=== PATIENT | male | born 1935 | race Caucasian/White ===

== ENCOUNTER 2023-06-23 06:54 | Inpatient (IN) | payer OTHER, SELFPAY ==
[2023-06-23] VITALS (36 sets, daily range): BP systolic 64–144; BP diastolic 36–88; BMI 21.8; BMI 22.5
[2023-06-23 02:40] LABS: % Basophils 0.3 % (0-2); % Eosinophils 0.6 % (0-6); % Immature Granulocytes 0.5 % (0-0.5); % Lymphocytes 4.2 % (20.5-51.1); % Monocytes 6.2 % (1.7-9.3); % Neutrophils 88.2 % (42.2-75.2); Absolute Basophils 0.1 10^3/uL (0-0.2); Absolute Eosinophils 0.1 10^3/uL (0-0.7); Absolute Immature Granulocytes 0.1 10^3/uL (0-0.05); Absolute Lymphocytes 0.7 10^3/uL (1.2-3.4); Absolute Monocytes 1.1 10^3/uL (0.1-0.6); Absolute Neutrophils 15.5 10^3/uL (1.4-6.5); Hematocrit 26.7 % (39.0-52.0); Hemoglobin 8.9 g/dL (13.0-18.0); Mean Corp Hgb Conc. 33.3 g/dL (33.0-37.0); Mean Corpuscular Hgb 29.9 pg (27.0-31.0); Mean Corpuscular Volume 89.6 fL (80.0-94.0); Mean Platelet Volume 8.1 fL (7.4-10.4); Nucleated Red Blood Cells % 0 % (-); Platelet Count 386 10^3/uL (130-400); Red Blood Cell Count 2.98 10^6/uL (4.70-6.10); Red Cell Dist. Width 17.5 % (11.5-14.5); White Blood Cell Count 17.6 10^3/uL (4.8-10.8)
[2023-06-23 02:52] LABS: Lactic Acid 1.6 mmol/L (0.7-2.0); Urine Albumin Trace (Neg - Trace); Urine Bilirubin Negative (Negative); Urine Character Slightly Cloudy (Clear); Urine Color Yellow; Urine Glucose Negative (Negative); Urine Ketone Negative (Negative); Urine Leukocyte 2+ (Negative); Urine Nitrite Negative (Negative); Urine Occult Blood 4+ (Negative); Urine Urobilinogen Negative (Neg - 1+)
[2023-06-23 03:04] LABS: Urine Red Blood Cell 60-70 /HPF (0-2); Urine White Cell >100 /HPF (0-5); Urine Yeast Many (Negative)
[2023-06-23 03:05] LABS: Urine Bacteria Moderate (Negative)
[2023-06-23 03:06] LABS: COVID-19 Antigen Negative (Negative)
[2023-06-23 03:15] LABS: ALT (SGPT) 12 U/L (0-50); AST (SGOT) 22 U/L (17-59); Albumin 3.4 g/dl (3.5-5.0); Alkaline Phosphatase 116 U/L (38-126); Blood Urea Nitrogen 44 mg/dl (9-20); Calcium 9.1 mg/dl (8.4-10.2); Carbon Dioxide 23 mmol/L (22-30); Chloride 98 mmol/L (98-107); Estimated Creatinine Clearance 21 ml/min; Glucose 184 mg/dl (70-99); Potassium 5.4 mmol/L (3.5-5.1); Sodium 130 mmol/L (135-145); Total Bilirubin 0.6 mg/dl (0.2-1.3); Total Protein 7.2 g/dl (6.3-8.2)
[2023-06-23] MEDS: TYLENOL/FEVERALL 650 MG RECTAL (03:31)
[2023-06-23] MEDS: NSS 500 IV (03:32)
[2023-06-23] MEDS: NSS 1000 IV (04:57)
[2023-06-23] MEDS: ZOSYN 50 IV ×3 (05:02→20:03)
--- NOTE | 2023-06-23 05:31 | EDRN ---
Patient is sleeping, call [facility]lock in reach, waiting for plan
--- NOTE | 2023-06-23 05:32 | ED.GENMED ---
History of Present Illness
General
Chief Complaint: Breathing Problem
Source: patient, ambulance crew and prison
Exam Limitations: dementia
Time Seen by Provider: 06/23/23 02:36
Nursing documentation reviewed up to this point in time: agreed with
Travel History
Have you had any contact with someone who has COVID-19?: No
Do you have any symptoms of coronavirus? Fever > 100 degrees, chills, cough, shortness of breath, sore throat, loss of taste or smell, muscle aches, or headache?: Yes
Symptoms:: sob
History of Present Illness
History of Present Illness:
87-year-old male with a past medical history of hyperlipidemia, insulin-dependent diabetes, chronic kidney disease, chronic Murry catheter, right AKA who presents to the emergency room from [facility] for evaluation of change in
mental status. Patient is unable to meaningfully participate in history due to his dementia and confusion. History obtained from prison staff and EMS. I spoke directly to the nurse at [facility] who reports that over the past 3 to 4
days patient has been slightly lethargic but not necessarily confused. Normally oriented x 2 and able to have basic conversation and answer questions. Apparently they were concerned for urinary tract infection and a urine sample has been sent but
results not back yet. This evening they noticed that patient was much more lethargic and now confused only basically able to say his name. He was noted to be febrile, tachycardic with a borderline pulse ox around 90% on room air. He had a soft
blood pressure in the 90s. He was sent to the emergency room via EMS. EMS reports that they provided oxygen on the way to the hospital no additional medications.
Past History
Past History
ED Past Medical History: HTN, IDDM and Other (DM, BPH, HLD)
ED Past Surgical History: Cholecystectomy, Orthopedic and Other
Patient has exhibited threatening behavior?: No
Social History
Tobacco: Former smoker
Alcohol: None
Drug: None
Personal:
Living: with family
Employment: Not employed
Family History
Family History: Diabetes and Cancer
Review of Systems
Review of Systems
Unable to obtain full review of systems at this time due to: dementia
All Other Systems: Not applicable
Phy Exam
Physical Exam
Physical Exam:
General: Laying in bed opens eyes to voice, oriented x 1; appears chronically ill
Head: Normocephalic, atraumatic
Eyes: Conjunctiva normal, patient has anisocoria with left greater than right pupil
Throat: Airway intact, handling secretions
Neck: Trachea midline, supple without meningismus
Lungs: Clear to auscultation bilaterally, no wheezing, rales, rhonchi
Heart: Tachycardia with regular rhythm, no murmurs, gallops, or rubs
Abd: Soft, non distended, no apparent tenderness
: Murry catheter in place with cloudy yellow urine
Neuro: Lethargic but opens eyes to voice, oriented x 1, moving all extremities
Extremities: Patient has right AKA with a small pressure sore on the stump of the right that does not appear acutely infected; left lower extremity dry with minor wounds on the toes but none of which appear acutely infected
Scores
Heart Failure Risk
Heart Failure Risk Score: Not Applicable
Heart Score for Chest Pain Patients
STEMI patient?: Not applicable
Withdrawal Assessment of Alcohol
Withdrawal Assessment Completed?: Not applicable
Course
Orders/Labs/Results
Orders:
Orders
06/23/23 02:16
Electrocardiogram (*1) Urgent
Reason for Study: Other
Other Reason for Exam: Possible Sepsis
Cardiac Monitoring- Treatment ONCE
EKG- Treatment ONCE
IV Insert/Care/Rem.- Treatment PRN
O2 Therapy [RESP] Urgent
Titrate/Wean O2 to maintain O2 sat greater than (%): 93
Special Instructions: TO MAINTAIN CONTINUOUS O2 SATS > OR = 93%
Pulse Ox/cont/shift [RESP] Urgent
Quantity: 1
Special Instructions: CONTINUOUS
06/23/23 02:28
Complete Blood Count/With Diff Urgent
Comprehensive Metabolic Panel Urgent
Lactic Acid Q4H
Comment: ON ICE, CANCEL 2ND ORDER IF FIRST LACTIC ACID LEVEL <2
Urinalysis Reflex To Culture Urgent
Date Specimen was Collected: 06/23/23
Time Specimen was Collected: 02:16
Urine Microscopic Reflex Cult Urgent
Blood Culture Q30M
CHRISTIN Source: Blood/Venous
Specimen Description:
Comment: FROM 2 SEPARATE SITES
Blood Culture Q30M
CHRISTIN Source: Blood/Venous
Specimen Description:
Comment: FROM 2 SEPARATE SITES
Urine Culture Urgent
CHRISTIN Source: U
Specimen Description:
Date Specimen was Collected: 06/23/23
Time Specimen was Collected: 02:16
06/23/23 02:42
Portable Chest Xray [CR Chest Portable - 1 View] Urgent
Comment:
Reason For Exam: SOB
Reason Study Needs to be Portable: Unable to Transport
06/23/23 02:44
COVID-19 Antigen Urgent
Source: Nasal Swab
Influenza A+B Rapid Molecular Urgent
CHRISTIN Source: Nasal Swab
Specimen Description:
06/23/23 02:58
CT Head W/o Iv Contrast Urgent
Comment:
Reason For Exam: confusion
06/23/23 03:01
Acetaminophen [Tylenol/Feverall] 650 mg RECTAL NOW STA
06/23/23 03:02
0.9% Sodium Chloride 500 ml [Nss] 500 ml IV BOLUS
06/23/23 04:45
0.9% Sodium Chloride 1000 ml [Nss] 1,000 ml IV BOLUS
Piperacillin/Tazo 3.375 Gram [Zosyn] 3.375 gram in 50 ml IV NOW
Vancomycin [Vancocin] 1,500 mg 0.9% Sodium Chloride [Nss] 20 ml 0.9% Sodium Chloride 250 ml [Nss] 250 ml IV NOW
06/23/23 05:31
Vancomycin [Vancocin] 1,500 mg 0.9% Sodium Chloride [Nss] 20 ml 0.9% Sodium Chloride 250 ml [Nss] 250 ml IV NOW
06/23/23 Breakfast
NPO
Allow oral meds: Yes
Allow clear liquids: No
06/23/23 06:06
Admit/Transfer Patient As Directed
Co-Sign Provider:
Level of Care: Inpatient admission
Assign to:: IMU- Intermediate Care
Physician / Group: Dr. Coy hospitalist
Diagnosis: Sepsis due to complicated UTI, septic shock??, RADHA
Reason for Hospitalization: Sepsis due to complicated UTI, septic shock??, RADHA
Expected length of stay greater than two midnights?: Yes
ELOS- Estimated Length of Stay in days: 4
I certify the patient meets the requirements for IP care: Yes
06/23/23 06:15
Code Status As Directed
Resuscitation Status: Limited DNR
Limited DNR: -No intubation
06/23/23 07:12
Acetaminophen [Tylenol] 650 mg PO Q4HPRN PRN
Ipratropium/Albuterol Sulfate [Duoneb] 3 ml INH R QIDPRN PRN
Lactated Ringers [Lr] 1,000 ml IV 100 mls/hr
06/23/23 07:12
Activity As Directed
Activity Level: As Tolerated
Pneumatic Compression Sleeves As Directed
Type: Knee high
Vital Signs As Directed
Frequency: Per unit guidelines
Speech Therapy Eval & Treat Routine
DX Deep Vein Thrombosis Video Routine
06/23/23 07:30
Insulin Aspart Corrective Low [Novolog Flexpen-Low Resistance] See Protocol SC AC
06/23/23 08:00
Aspirin Chewable [Low Strength Aspirin] 81 mg PO DAILY
Clopidogrel Bisulfate [Plavix] 75 mg PO DAILY
Heparin 5,000 units SC Q12
Midodrine [ProAmatine] 5 mg PO TID@0800,1300,1800
Piperacillin/Tazo 3.375 Gram [Zosyn] 3.375 gram in 50 ml IV Q6H
Povidone-Iodine 5% Solution 1 applic TOPICAL DAILY
Tamsulosin [Flomax] 0.4 mg PO DAILY
VANCOMYCIN Pharmacy to Dose [VANCOCIN Pharmacy to Dose] 1 each Pharmacy To Prepare [Call Pharmacy To Prepare] 0 ml IV PER PROTOCOL
06/23/23 08:30
Saccharomyces Boulardii [Florastor] 250 mg PO BID@0830,1830
06/23/23 18:00
Atorvastatin [Lipitor] 20 mg PO QPM
06/23/23 22:00
insulin glargine [Lantus Solostar U-100 Insulin] 10 unit SC HS
Abnormal Lab Results
06/23/23
02:28
WBC 17.6 H 10^3/uL
(4.8-10.8)
RBC 2.98 L 10^6/uL
(4.70-6.10)
Hgb 8.9 L g/dL
(13.0-18.0)
Hct 26.7 L %
(39.0-52.0)
RDW 17.5 H %
(11.5-14.5)
Abs Immat Gran (auto) 0.1 H 10^3/uL
(0-0.05)
Absolute Neuts (auto) 15.5 H 10^3/uL
(1.4-6.5)
Absolute Lymphs (auto) 0.7 L 10^3/uL
(1.2-3.4)
Absolute Monos (auto) 1.1 H 10^3/uL
(0.1-0.6)
Neutrophils % 88.2 H %
(42.2-75.2)
Lymphocytes % 4.2 L %
(20.5-51.1)
Sodium 130 L mmol/L
(135-145)
Potassium 5.4 H mmol/L
(3.5-5.1)
BUN 44 H mg/dl
(9-20)
Creatinine 2.2 H mg/dL
(0.7-1.3)
Glucose 184 H mg/dl
(70-99)
Albumin 3.4 L g/dl
(3.5-5.0)
Ur Occult Blood Reflex 4+ A
(Negative)
Leukocyte Esterase Rfl 2+ A
(Negative)
Urine RBC 60-70 A /HPF
(0-2)
Urine WBC (Reflex) >100 A /HPF
(0-5)
Urine Bacteria (Reflex) Moderate A
(Negative)
Urine Yeast Many A
(Negative)
06/23/23 02:28
06/23/23 02:28
Vital Signs
Initial and Last Documented VS:
Initial Vital Signs
Temp Pulse Resp BP Pulse Ox
38.1 C H 112 22 96/57 92
06/23/23 02:19 06/23/23 02:19 06/23/23 02:19 06/23/23 02:19 06/23/23 02:19
Last Documented Vital Signs
Temp Pulse Resp BP Pulse Ox
38.1 C H 92 17 92/56 96
06/23/23 02:19 06/23/23 05:15 06/23/23 05:15 06/23/23 05:04 06/23/23 05:15
MDM/Problems Addressed
Differential Diagnosis Includes:
Concern would be for sepsis potentially secondary to UTI versus pneumonia versus wound infection; viral syndrome also consideration
MDM/Problems Addressed:
87-year-old male with history as documented presents from prison for evaluation of change in mental status. He presents mildly hypotensive, tachycardic, febrile, tachypneic with a borderline pulse ox 92% on room air. Physical exam as above.
Plan to place an IV send labs including CBC and CMP, lactate, blood cultures. Will check urinalysis and a chest x-ray. Will send viral swabs. Will check stat CT of the head�he does have anisocoria unclear if this is a chronic issue. Check an
EKG. Provide fluids. Reassess after the above.
Labs reviewed: CBC shows leukocytosis to 17.6. Stable anemia at 8.9. CMP shows acute kidney injury with a creatinine of 2.2 from baseline of less than 1. Marginal hyperkalemia 5.4. His lactate fortunately is less than 2. Urinalysis shows
significant pyuria and bacteria with no significant amount of squamous cells concern for possible urosepsis. Chest x-ray reviewed by me shows no clear pneumonia. CT head fortunately shows no acute pathology. Plan to cover broadly with vancomycin
and Zosyn. Continue with IV fluid resuscitation. Case discussed with hospitalist for admission for continued management.
Chronic conditions affecting care:
Dementia
*Radiology
Radiology exam reviewed: preliminary read by ED provider
*Pulse Oximetry
Patient hypoxic: no
*EKG
Interpreted by ED Provider?: Yes
Heart Rate: 109
Rate: tachycardiac
Rhythm: sinus and sinus tachycardia
[place]: left axis deviation
Interval: normal interval
QRS Pattern: normal QRS
Ischemia: non-specific ST changes
*Critical Care Note
Total Time (30-74mins, 75-104mins- exclusive of procedures): 35
comment:
Critical care statement: A total of 35 minutes of critical care time was provided for this patient. This includes management of unstable vital signs, evaluation of the patient at bedside, frequent reassessment, discussion with
consultants/hospitalist, and review of pertinent medical records. This time was separate from time utilized to perform any aforementioned documented procedures
Data Reviewed
Review of Other/Old Records Reveals: Labs, Records and Discharge Summary
Source: records, ambulance crew and prison
Patient Management
Discussion with other providers: Hospitalist (Discussed with hospitalist) and snf staff
Escalation/DeEscalation of care consider admission/obs:
Admission indicated
ED Attending Note
-
Portions of this chart may have been created with voice recognition software.� Occasional wrong word or��sound alike� substitutions may have occurred due to the inherent limitations of voice recognition software.
Discharge Plan
Departure
Patient Disposition: Admit
Date of Disposition: 06/23/23
Time of Disposition: 05:35
Admit to doctor: Zbigniew
Presentation/result/management discussed w/ accepting MD/DO: Hospitalist
Discharge Problem:
Sepsis, RADHA (acute kidney injury), Acute UTI, Encephalopathy
Interventions
Interventions:
*Risk Screen - Suicide Last Done: 06/23/23 02:19
*General Assessment Last Done: 06/23/23 02:19
*Neglect/Abuse Screening Last Done: 06/23/23 02:19
ED- Fall Risk Assessment Last Done: 06/23/23 02:50
*ED COVID-19 Vaccine History Last Done: 06/23/23 02:19
ED- Cardiac Assessment Last Done: 06/23/23 02:50
ED- Pulmonary Assessment Last Done: 06/23/23 02:50
[2023-06-23] MEDS: VANCOCIN 300 ML IV (05:38)
[2023-06-23] MEDS: VANCOCIN 300 MG IV (05:38)
--- NOTE | 2023-06-23 06:02 | HPS.HSE ---
Addendum entered and electronically signed by Efren Coy MD 06/23/23 06:47:
Correction
<del>DNR/DNI</del> <del>(okay</del> <del>to</del> <del>give</del> <del>pressor)</del>
<del>Regular</del> <del>diet</del>
<del>DVT</del> <del>prophylaxis�nonee</del>
Addendum entered and electronically signed by Efren Coy MD 06/23/23 06:35:
DX: sepsis plus or minus evolving shock due to CAUTI.
Original Note:
Family Physician
-
Family Physician: Tyrell Mcgowan DO
Chief Complaint
-
AMS
History of Present Illness
HPI
87M [place] Res HX Dementia, IDDM, PAD,chronic Murry catheter, right AKA seen at ER residential for evaluation of change in mental status. Severly limited historian due to dementia and acute confusinal status.
[facility]
Per [facility] record who reports that over the past 3 to 4 days patient has been slightly lethargic but not necessarily confused. Normally oriented x 2 and able to have basic conversation and answer questions. Apparently they were concerned for urinary
tract infection and a urine sample has been sent but results not back yet. This evening they noticed that patient was much more lethargic and now confused only basically able to say his name. Noted to be febrile, tachycardic with a borderline
pulse ox around 90% on room air. He had a soft blood pressure in the 90s.
Medical History
Past Medical History
Past Medical History: Reports Psychiatric (dementia ) and Other (HTN, IDDM and Other (DM, BPH, HLD))
Past Surgical History: Reports Cholecystectomy
Social History
Tobacco: Former Smoker
Alcohol: None
Living: Senior Living
Family History
Family History: Not pertinent
Allergies / Home Medications
Allergies reflects when Allergies were last updated in [employer].
Home Medications with original date entered in [employer]
Allergy/Medication List:
Allergies
Allergy/AdvReac Type Severity Reaction Status Date / Time
No Known Allergies Allergy Verified 06/23/23 02:42
Home Medications
acetaminophen 325 mg tablet 325 mg PO Q4HPRN PRN mild pain/fever>100.4 02/05/23
ascorbic acid (vitamin C) 500 mg tablet 500 mg PO DAILY Supplement 02/05/23
aspirin 81 mg chewable tablet 81 mg PO DAILY Blood Clot Prevention/Tx 02/05/23
atorvastatin 20 mg tablet 20 mg PO QPM High Cholesterol 02/05/23
cilostazol 50 mg tablet 50 mg PO BID@0830,1830 Blood Clot Prevention/Tx 02/05/23
clopidogrel 75 mg tablet 75 mg PO DAILY Blood Clot Prevention/Tx 02/05/23
ferrous gluconate 324 mg (38 mg iron) tablet 324 mg PO DAILY Supplement 02/05/23
folic acid 1 mg tablet 1 mg PO DAILY Supplement 02/05/23
gabapentin 300 mg capsule 300 mg PO BID@0830,1830 Neurological Condition 02/05/23
insulin glargine 100 unit/mL (3 mL) subcutaneous pen (Lantus Solostar U-100 Insulin) 12 unit SC HS Diabetes 02/05/23
melatonin 3 mg tablet 3 mg PO QPM Sleep 02/05/23
metformin 500 mg tablet 500 mg PO DAILY Diabetes 02/05/23
metoprolol succinate 25 mg tablet,extended release 24 hr 12.5 mg PO DAILY Blood Pressure 02/05/23
tamsulosin 0.4 mg capsule 0.4 mg PO DAILY Lung/Breathing Issues 02/05/23
Povidone-Iodine 5% Solution 1 applic topical DAILY Skin Issues 04/04/23
Saccharomyces boulardii 250 mg capsule 250 mg PO BID@08,1829 probiotic 04/04/23
bisacodyl 10 mg rectal suppository (Dulcolax (bisacodyl)) 10 mg NE DAILYPRN PRN if lactulose is ineffective 04/04/23
gabapentin 100 mg capsule 100 mg PO BID@829,1829 Pain 04/04/23
gabapentin 300 mg capsule 600 mg PO HS Pain 04/04/23
ipratropium 0.5 mg-albuterol 3 mg (2.5 mg base)/3 mL nebulization soln 3 ml inhalation R QIDPRN PRN sob/wheezing 04/04/23
lactulose 10 gram/15 mL oral solution 20 g PO HSPRN PRN constipation 04/04/23
sodium phosphates 19 gram-7 gram/118 mL enema (Fleet Enema) 118 ml NE DAILYPRN PRN if no bm 8hrs after suppository 04/04/23
<del>sulfamethoxazole</del> <del>800</del> <del>mg-trimethoprim</del> <del>160</del> <del>mg</del> <del>tablet</del> <del>(Bactrim</del> <del>DS)</del> <del>1</del> <del>tab</del> <del>PO</del> <del>BID@0830,1830</del> <del>Infection</del>
<del>04/04/23</del>
docusate sodium 100 mg capsule 100 mg PO BID Constipation #0 caps 04/10/23
insulin lispro 100 unit/mL subcutaneous pen (Humalog KwikPen (U-100) Insulin) 3 unit (0.03 mL) SC TID@0800,1200,1630 Diabetes #0 mL 04/10/23
midodrine 5 mg tablet 5 mg PO TID@0800,1300,1800 Blood pressure #0 tabs 04/10/23
oxycodone 15 mg tablet,crush resistant,extended release 12 hr (OxyContin) 15 mg PO Q12 Pain #4 tabs 04/10/23
oxycodone 5 mg tablet 10 mg PO Q6HPRN PRN moderate severe pain #8 tabs 04/10/23
sennosides 8.6 mg tablet (Senna Lax) 17.2 mg PO BID Constipation #0 tabs 04/10/23
Review of Systems
-
Constitutional: Reports No Symptoms
EENT: Reports No Symptoms
Respiratory: Reports No Symptoms
Cardiac: Reports No Symptoms
Abdomen/GI: Reports No Symptoms
: Reports No Symptoms
Musculoskeletal: Reports No Symptoms
Skin: Reports No Symptoms
Neurological: Reports See HPI and Other (AMS)
Endocrine: Reports No Symptoms
Hematologic/Lymphatic: Reports No Symptoms
Psych: Reports No Symptoms
Physical Exam
Vital Signs
Vital Signs
Temp Pulse Resp BP Pulse Ox
100.6 F H 92 17 92/56 96
06/23/23 02:19 06/23/23 05:15 06/23/23 05:15 06/23/23 05:04 06/23/23 05:15
Physical Exam
General: Other (see below )
Laboratory Results
-
06/23/23 02:28
06/23/23 02:28
Laboratory Results
Lactic Acid Cancelled 06/23/23 06:30
Total Bilirubin 0.6 mg/dl (0.2-1.3) 06/23/23 02:28
AST 22 U/L (17-59) 06/23/23 02:28
ALT 12 U/L (0-50) 06/23/23 02:28
Alkaline Phosphatase 116 U/L (38-126) 06/23/23 02:28
Data Reviewed
-
Lab Data: Labs Reviewed by me
Old Records: Reviewed
Impression/Plan
-
Reviewed VS: T 100.6 BP 90/55 HR 90
PE
Gen: lethargic
HEENT: anicteric
Neck: supple
Lungs: symmetric AE
Cor: RRR S1 S2
Abdomen: soft NT NG NRT
[employer]ER: confused
MS: no edema
Psych: deferred due to AMS
Data
WCC 17s
Hgb 8.9 - baseline mid 8s - mid 9s
Na 130
K 5.4
BUN 44
Cr 2.2 - baseline 1.0
BG 185
Significantly abnormal UA suggestive of UTI
UCx sent
BCx sent
CXR: no overt PNA by my view
HCT: No acute process
EKG
SINUS TACHYCARDIA
LEFT AXIS DEVIATION
ABNORMAL ECG
WHEN COMPARED WITH ECG OF 05-FEB-2023 20:20,
PREMATURE VENTRICULAR COMPLEXES ARE NO LONGER PRESENT
PREMATURE SUPRAVENTRICULAR COMPLEXES ARE NO LONGER PRESENT
Pror admission 04/04/23 - 04/10/23
DISCHARGE DIAGNOSIS:
Sepsis secondary to wounds on the lower extremities and right above knee amputation stump.
IDDM with Diabetic neuropathy.
Severe PAD
Prostatic hypertrophy.
Hypertension.
Chronic anemia.
ASSESSMENT & PLAN
Sepsis due to complicated UTI
Hypotension - evolving septic shock plkus HX Midodrine depedent hypotesion
Asso. RADHA due to sepsis
Mild hyperkalemia due to RADHA
Asso. hypoactive TME
HX POS MRSA wound infection
HX C diff
- Empiric NPO for aspiration precaution
- Nursing to screen for PO
- s/p 1.5l septic NS fluid bolus
- IV LR in place of NS
- agree with IV Vancomycin and Zosyn
- add Florastor BID
- Held [employer] gabapentin and [employer] Oxycodone due to lethargy
- f/u Bcx, UCx
- f/u Cr and K
- f/u BP
Severe peripheral arterial disease of left lower extremity
- on aspirin, Plavix, statin, cilostazol
Chronic anemia
-Hold iron supplement
Essential hypertension
-Hold metoprolol
IDDM
Diabetic neuropathy
- de escalade Lantus to 10 HS
- held Humalog
- add low ISS
BPH
-Continue tamsulosin
Constipation HX
DNR/DNI (okay to give pressor)
Regular diet
DVT prophylaxis�none
DVT Px: SQH q12
Code: DNI per prior record
IMU
[2023-06-23] MEDS: LR 1000 IV ×4 (08:47→21:18)
[2023-06-23] MEDS: PLAVIX PO (08:49)
[2023-06-23] MEDS: FLORASTOR PO (08:49)
[2023-06-23] MEDS: ProAmatine PO ×2 (08:49→20:17)
[2023-06-23] MEDS: LOW STRENGTH ASPIRIN PO (08:49)
[2023-06-23] MEDS: FLOMAX PO (08:49)
[2023-06-23] MEDS: HEPARIN 5000 UNITS SC ×2 (08:52→22:40)
--- NOTE | 2023-06-23 09:43 | EDRN ---
physician aware that wound care order needs to be adjusted per pharmacy
--- NOTE | 2023-06-23 11:04 | EDRN ---
Pharmacy trying to obtain the wound dressing order for me to utilize
[2023-06-23 12:50] LABS: Glucose - Point of Care 213 mg/dl (70-99)
[2023-06-23] MEDS: NOVOLOG FLEXPEN-LOW RESISTANCE 2 UNITS SC (12:51)
[2023-06-23] MEDS: ProAmatine 5 MG PO (13:00)
--- NOTE | 2023-06-23 13:46 | PHA.VAN.IN ---
Assessment
- Assessment
Renal Function: Appears elevated from baseline (06/08/22 Scr 0.7)
Maximum Temperature: 100.6 06/23/23 at 02:19
Minimum Temperature: 97.5 06/23/23 at 07:25
Concomitant Antimicrobials: Piperacillin-tazobactam
Historical Micro: History of MRSA infection (Left leg wound 04/04/23)
- Previous Dosing Experience
Previous Regimen: see below
Patient's SCR is: Elevated compared to previous dosing experience (0.7)
Patient's weight is: Elevated compared to previous dosing experience (61.1 now 65kg)
Pharmacist note from prior Regimen 04/10/2023
Vancomycin Assessment / Plan
- Assessment
Renal Function: Stable
Vancomycin since discontinued but provided the following patient-specific PK:
- Assessment - Therapeutic Drug Monitoring
Extrapolated Cmax (mcg/mL): 32.5
Peak level was drawn: Appropriately (drawn ~1.2H after end of previous infusion)
Extrapolated Cmin (mcg/mL): 15.7
Trough Drawn: Appropriately
Levels were drawn: At steady state (levels drawn around 4th maintenance dose)
Calculated AUC (mcg*h/mL): 555
Calculated ke: 0.64469
Calculated half life (H): 21.5
Calculated Vd (L): 70 (1.1 L/kg)
Calculated Vanc CL (ml/min): 37.5
Levels were not drawn in same dosing interval so calculations extrapolated as if they were
Vancomycin since discontinued.
For future dosing, if weight and renal function stable, may consider Vanc 1250mg Q24H or lowest dosing to provide therapeutic AUC and further decrease nephrotoxicity risk would be Vanc 1000mg Q24H (AUC 451, Cmax 26.6, Trough 12.7)
Plan
- Plan
Initial / Loading Dose: Vancomycin 1500mg x 1 given in ED at 05:38 am
Maintenance Regimen: Dose by level
Monitoring: Random vancomycin level ordered for 06/24/23 at 06:00
Pharmacokinetics Vancomycin I
- -
Patient Age: 87
Patient Sex: Male
Vancomycin Day #: 1
Indication: Genito-Urinary Tract
Requesting Provider: Oskar MENDOZA
Pertinent Antimicrobial Allergies:
No antibiotic allergies
Height / Weight:
Height 5 ft 8 in
Actual Weight 65 kg
IBW in k.4
Pertinent Past Medical History: DM, R AKA, chronic soria, Non-pressure chronic ulcer of LE
- Vital Signs / Lab Results
Temp Pulse Resp BP Pulse Ox
97.5 F 88 19 91/55 92
06/23/23 07:25 06/23/23 13:00 06/23/23 12:00 06/23/23 13:00 06/23/23 12:00
Lab Results - Hematology
06/23/23
02:28
WBC 17.6 H
Lab Results - Chemistry
06/23/23
02:28
BUN 44 H
Creatinine 2.2 H
Estimated Creat Clear 21
Albumin 3.4 L
06/23/23 06/23/23 06/23/23
02:28 03:00 06:30
Lactic Acid 1.6 Cancelled Cancelled
Lab Results - Urine
06/23/23
02:28
Urine Nitrite (Reflex) Negative
Leukocyte Esterase Rfl 2+ A
Urine WBC (Reflex) >100 A
Ur Squamous Epith Cells 3-5
Urine Bacteria (Reflex) Moderate A
Microbiology Results
06/23/23 02:44 Influenza Types A & B (GLORIA) - Final
Nasal Swab Negative for Influenza A & B, NAAT
Negative results must be combined with clinical observations
and patient history.
Nucleic Acid Amplification test (NAAT)performed on the
[employer] platform.
--- NOTE | 2023-06-23 13:51 | PTOTSP ---
SPEECH THERAPY SWALLOW EVALUATION:
Clinical signs of oropharyngeal dysphagia, likely chronic related to dementia (given daughter's report of prior history) and acutely exacerbated by current lethargy/confusion secondary to sepsis and UTI. Patient remains at risk for aspiration and
related complications given tenuous respiratory status and confusion/lethargy. Recommend temporary NPO except for necessary medications crushed in puree and small single sips of water with RN assist when alert and upright, following aggressive oral
care. Speech therapy to follow, re-assess patient in 24 hours, provide continued education regarding aspiration risks and precautions and provide continued diagnostic treatment as appropriate.
RECOMMEND:
1) temporary NPO
2) necessary medications crushed in puree
3) small single sips of water with NO STRAW with RN assist when alert and upright, following aggressive oral care
4) Speech therapy to follow, re-assess patient in 24 hours, provide continued education regarding aspiration risks and precautions and provide continued diagnostic treatment as appropriate
--- NOTE | 2023-06-23 14:33 | CON.ID ---
Consultation
-
Date/Time Consultation Requested: 06/23/23 9:17
Date/Time Consultation Performed: 06/23/23 14:38
Requesting Provider: Dr Arrington
Performing Provider: Dr Copeland
Reason for Consultation: severe sepsis
Chief Complaint / Past History
Chief Complaint
AMS
History of Present Illness
Ms Wei is an 87 year old male with history of dementia, chronic soria catheter who presented here today for change in mental status - history limited by the condition of the patient, history obtained by chart review. Has been lethargic x3-4
days, there was progression of confusion and she developed a fever, tachycardia and hypoxemia/hypotension and she was referred to the ER. 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
Since arrival here she has been febrile to 100.6, BP stable, wbc 17, hgb 8.9, plt 386, L shift, cr basline 1.0 now 2.2, UA with gross pyuria from a soria, moderate bacteria, many yeast, covid negative, CT head w/o contrast: atrophy, CXR: nonspecific
- PA and lateral recommended - possible atelectasis vs pneumonia, blood cultures x2 in progress note urine culture from 06/21 listed as clean catch 100K c albicans, a second urine culture sent today - in progress, QTc 430 currently on vancomycin and
zosyn, flu and covid pcrs negative, ID is consulted for assistance with management.
Past History
Additional Past Medical History:
(dementia ) and Other (HTN, IDDM and Other (DM, BPH, HLD))
Additional Past Surgical History:
cholecystectomy and right AKA
Allergy History:
No Known Allergies Allergy (Verified 06/23/23 02:42)
Medications Reviewed: Yes
Social History
Tobacco: Former Smoker
Alcohol: None
Drug: None
Family History
Family History: Not Pertinent
Review of Systems
Review of Systems
General: Fever
unable to obtain full ROS due to AMS
Vital Signs
Temp Pulse Resp BP Pulse Ox
97.5 F 88 19 91/55 92
06/23/23 07:25 06/23/23 13:00 06/23/23 12:00 06/23/23 13:00 06/23/23 12:00
Physical Exam
Physical Exam
Constitutional: No Acute Distress and Chronically Ill
Cardiovascular: Regular Rate and S1/S2; Negative Murmur or Rub
Pulmonary: Clear and Symmetric; Negative Wheezes, Rales or Rhonchi
Gastrointestinal: Soft, Non Tender, Non Distended and Normal Bowel Sounds
Genito-Urinary: Negative Suprapubic Tenderness
Skin: Warm and Dry; Negative Rash or Jaundice
Wound: Other (multipodus boot on the foot)
Neurological: Negative Awake
Lab / Diagnostic Study Results
06/23/23 02:28
06/23/23 02:28
Abs Immat Gran (auto) 0.1 10^3/uL (0-0.05) H 06/23/23 02:28
Absolute Neuts (auto) 15.5 10^3/uL (1.4-6.5) H 06/23/23 02:28
Absolute Lymphs (auto) 0.7 10^3/uL (1.2-3.4) L 06/23/23 02:28
Absolute Monos (auto) 1.1 10^3/uL (0.1-0.6) H 06/23/23 02:28
Absolute Basos (auto) 0.1 10^3/uL (0-0.2) 06/23/23 02:28
Immature Gran % 0.5 % (0-0.5) 06/23/23 02:28
Neutrophils % 88.2 % (42.2-75.2) H 06/23/23 02:28
Lymphocytes % 4.2 % (20.5-51.1) L 06/23/23 02:28
Monocytes % 6.2 % (1.7-9.3) 06/23/23 02:28
Eosinophils % 0.6 % (0-6) 06/23/23 02:28
Basophils % 0.3 % (0-2) 06/23/23 02:28
Lactic Acid Cancelled 06/23/23 06:30
Ur Squamous Epith Cells 3-5 /LPF (Few) 06/23/23 02:28
Microbiology Results
Micro:
06/23/23 02:44 Influenza Types A & B (GLORIA) - Final
Nasal Swab Negative for Influenza A & B, NAAT
Negative results must be combined with clinical observations
and patient history.
Nucleic Acid Amplification test (NAAT)performed on the
[employer] platform.
06/23/23 02:28 Urine Culture - Pending
Urine
06/23/23 02:28 Blood Culture - Pending
Blood/Venous
06/23/23 02:28 Blood Culture - Pending
Blood/Venous
Assessment / Plan
AMS
Possible Candidal UTI vs Colonization
Leukocytosis
Sepsis
- blood cultures x2 in progress
- a repeat urine culture is in progress, note urine cx from 06/21 with 100K C albicans
- QTc is acceptable
- start fluconazole 400 mg loading dose, 200 mg moving forward
- continue zosyn for now, stop vancomycin
- CT a/p without contrast
- soria needs to be removed and replaced during this admission
Hyperkalemia
- management per IM service
[2023-06-23] MEDS: DIFLUCAN 400 MG 200 IV (16:06)
[2023-06-23 19:16] LABS: Glucose - Point of Care 119 mg/dl (70-99)
[2023-06-23] MEDS: NOVOLOG FLEXPEN-LOW RESISTANCE SC (19:22)
--- NOTE | 2023-06-23 19:55 | PHANOTE ---
06/23/2023, [email or web address], called Josy Miller several times to fax over pt.'s medication list and was unsuccessful.
[2023-06-23] MEDS: FLORASTOR 250 MG PO (20:12)
[2023-06-23] MEDS: LIPITOR PO (20:16)
--- NOTE | 2023-06-23 20:25 | EDRN ---
Patient's urine output is a fruit punch red when previously was an ice tea color. Some clots also noted. Unable to give all of night time oral medication d/t patient having a wet cough after giving one medication with apple sauce. Loyda Morgan made
aware.
--- NOTE | 2023-06-23 22:14 | PTCARENOTE ---
Rec'd pt from ED RN Selena. Pt AAOx2, able to identify hospital but thought he was in [place]. Pt oriented to surroundings and safety measures. Pt is confused/forgetful with hx dementia, presents with garbled speech and grits teeth while
talking at times, but denies pain/SOB. Does exhibit harsh wet non-productive cough. Pt yells out into hallway for nurse at times. Incredibly limited/untrustworthy historian d/t hx. Denies dentures, but is noted to have poor oral hygeine with several
lower teeth chipped. Upper teeth appear to be much more intact, unsure if possible denture present. GRAVITY PROSPECTOR noted that urine had been doreen-tea colored with a new change of punch colored urine. Upon assessment of Murry catheter system, catheter tubing
was not secured correctly within the stat lock device causing tension on the catheter. Pt's genitalia and brief were both bloody. Upon cleaning pt's genitalia, this RN assessed abnormal genitalia with severely flayed penis, likely d/t chronic Murry.
This RN noted small amount of active bleeding at catheter insertion site, likely d/t catheter tubing not secure within stat lock, which has been remedied. Call whitlock placed within reach and bed alarm placed for safety.
[2023-06-23] MEDS: LANTUS 0.100000000000000006 UNITS SC (22:41)
[2023-06-23 22:51] LABS: Glucose - Point of Care 149 mg/dl (70-99)
[2023-06-24] VITALS (12 sets, daily range): BP systolic 96–134; BP diastolic 57–79; BMI 22.6
[2023-06-24 00:09] LABS: Glucose - Point of Care 144 mg/dl (70-99)
[2023-06-24] MEDS: NOVOLOG FLEXPEN-LOW RESISTANCE SC ×4 (01:09→17:40)
[2023-06-24] MEDS: ZOSYN 50 IV ×2 (01:16→05:45)
[2023-06-24] MEDS: LR 1000 IV ×4 (03:00→20:46)
[2023-06-24] MEDS: TYLENOL PO (03:21)
[2023-06-24] MEDS: TYLENOL/FEVERALL 650 MG RECTAL (04:19)
[2023-06-24 06:12] LABS: Hematocrit 25.1 % (39.0-52.0); Hemoglobin 8.4 g/dL (13.0-18.0); Mean Corp Hgb Conc. 33.5 g/dL (33.0-37.0); Mean Corpuscular Hgb 30.1 pg (27.0-31.0); Mean Platelet Volume 8.5 fL (7.4-10.4); Platelet Count 361 10^3/uL (130-400); Red Blood Cell Count 2.79 10^6/uL (4.70-6.10); Red Cell Dist. Width 17.3 % (11.5-14.5); White Blood Cell Count 10.5 10^3/uL (4.8-10.8)
[2023-06-24 06:29] LABS: Blood Urea Nitrogen 25 mg/dl (9-20); Calcium 8.2 mg/dl (8.4-10.2); Carbon Dioxide 24 mmol/L (22-30); Chloride 104 mmol/L (98-107); Estimated Creatinine Clearance 42 ml/min; Glucose 110 mg/dl (70-99); Potassium 4.3 mmol/L (3.5-5.1); Sodium 131 mmol/L (135-145); eGFR > 60.00
[2023-06-24 06:32] LABS: Glucose - Point of Care 128 mg/dl (70-99)
[2023-06-24] MEDS: PLAVIX PO (07:14)
[2023-06-24] MEDS: ProAmatine PO (07:14)
[2023-06-24] MEDS: FLOMAX PO (07:14)
[2023-06-24] MEDS: LOW STRENGTH ASPIRIN PO (07:14)
[2023-06-24] MEDS: FLORASTOR PO (07:15)
[2023-06-24] MEDS: HEPARIN 5000 UNITS SC ×2 (08:28→20:12)
--- NOTE | 2023-06-24 09:15 | PTOTSP ---
Speech Language Pathology
Pt seen for dysphagia tx. Awake upon arrival. Oriented to name, , and month. P.O. trials of ice chips, thin liquids, nectar-thick liquids, puree, and regular solids provided. Slightly prolonged mastication noted with regular solids, but this
was functional given additional time. Immediate cough with thin liquids. Slight wet vocal quality post consecutive sips of nectar-thick liquids.
Recommend:
(1) Regular solids/IDDSI Level 2 Liquids (mildly-thick/nectar-thick liquids)
(2) Aspiration precautions: sit upright, slow rate, single cup or straw sips
(3) Meds crushed in puree
(4) VSE to further evaluate pharyngeal phase of swallow function
(5) Allow ice chips between meals post oral care given supervision per Aspiration Risk Hydration Protocol (ARHP)
(6) UX DESIGNER to continue to follow
--- NOTE | 2023-06-24 10:02 | W.PN.ID1 ---
Date of Service
Date of Service: June 24, 2023
Today's Communication
- soria to be removed and replaced vs suprapubic cath; removal as peristent yeast in culture - urology consulted
- sterocolitis and impaction - management per IM service - would suggest addressing this
Assessment / Plan
AMS - improved
Probable Candidal UTI
Leukocytosis
RADHA resolved
Sepsis
- blood cultures x2 in progress
- a repeat urine culture is in progress, note urine cx from 06/21 with 100K C albicans
- QTc is acceptable
- continue fluconazole 200 mg moving forward
- start unasyn stop zosyn
- CT - thickened bladder wall, probable impaction/possible colitis, possible aspiration
- soria to be removed and replaced vs suprapubic cath; removal as peristent yeast in culture - urology consulted
- sterocolitis and impaction - management per IM service - would suggest addressing this
Chief Complaint
-: Clinical Sepsis and UTI
Subjective / Review of Systems
tmax 101.4
bp stable
resolved leukocytosis
cr stable 1.1
urine culture again with c albicans 100K
denies coughing
cant remember the last time he pooped - no abdominal tenderness
Vital Signs / Physical Exam
Vital Signs
Vital Signs
Temp Pulse Resp BP Pulse Ox
99.3 F 114 29 102/59 98
06/24/23 07:05 06/24/23 08:00 06/24/23 08:00 06/24/23 08:00 06/24/23 10:00
Physical Exam
Constitutional: No Acute Distress and Chronically Ill
Cardiovascular: Regular Rate and S1/S2; Negative Murmur or Rub
Pulmonary: Clear and Symmetric; Negative Wheezes or Rales
Gastrointestinal: Soft, Non Tender, Non Distended and Normal Bowel Sounds
Genito-Urinary: Negative Suprapubic Tenderness
Skin: Warm and Dry; Negative Rash or Jaundice
Objective Data
Lab Data
Lab Results
06/24/23 05:54
06/24/23 05:54
Estimated Creat Clear 42 ml/min 06/24/23 05:54
Lactic Acid Cancelled 06/23/23 06:30
Total Bilirubin 0.6 mg/dl (0.2-1.3) 06/23/23 02:28
AST 22 U/L (17-59) 06/23/23 02:28
ALT 12 U/L (0-50) 06/23/23 02:28
Alkaline Phosphatase 116 U/L (38-126) 06/23/23 02:28
Most recent labs reviewed.
Micro Results:
06/23/23 02:28 Urine Culture - Final
Urine Grecia albicans
06/23/23 02:28 Blood Culture - Preliminary
Blood/Venous No Growth in 24 hours- Final report to follow
06/23/23 02:28 Blood Culture - Preliminary
Blood/Venous No Growth in 24 hours- Final report to follow
06/23/23 02:44 Influenza Types A & B (GLORIA) - Final
Nasal Swab Negative for Influenza A & B, NAAT
Negative results must be combined with clinical observations
and patient history.
Nucleic Acid Amplification test (NAAT)performed on the
[employer] platform.
Care Review
Plan reviewed with: Physician (Dr Arrington - bowel regimen, uro consult)
--- NOTE | 2023-06-24 10:05 | CM ---
Patient from [facility] with Hx Dementia, IDDM, chronic Murry catheter, right AKA with Dx Sepsis due to UTI, hypotension - evolving septic shock, RADHA, TME. O2 5L. NPO/IVF. Receiving IV Zosyn, IV Diflucan. Per nurse assessment;
confused, forgetful.
Spoke with Samia, [facility]; the patient resides at [facility] in LTC and is on a private pay bed hold. The phone for report is [phone], fax [phone]. Samia would like the patient to return skilled for PT/OT - uncertain
if patient would benefit from transfer training.
Spoke with Pascual, nurse [facility]; the patient was mostly forgetful at baseline with intermittent confusion.
The patient is assisted with ADLs.
He has no prosthetic leg and is non-ambulatory.
A mechanical lift is used for transfers out of bed. He is able to self propel his w/c.
The patient is able to feed himself.
Pharmacy -[facility].
CM continuing to follow for d/c needs.
Plan request PT/OT Evals.
Plan contact patient's daughter Paula prior to return to SNF.
Plan return to [facility] when medically ready.
--- NOTE | 2023-06-24 10:37 | WOUNDNOTE ---
L GREAT TOE TIP
--- NOTE | 2023-06-24 10:37 | WOUNDNOTE ---
LLE (ANTERIOR UPPER)
--- NOTE | 2023-06-24 10:39 | WOUNDNOTE ---
PENIS MEATAL TEAR
--- NOTE | 2023-06-24 10:42 | WOUNDNOTE ---
WOC RN note: Patient admitted with sepsis secondary to complicated UTI, septic shock. Patient resides at SNF.
See H&P for complete history.
PMH: dementia, IDDM, severe PAD, Murry (penile meatal tear)
Wound Location and type/assessment: Patient admitted with:
Appetite:
Pressure redistribution devices in place:
Plan:
Will confirm orders with hospitalist and update nurse.
Updated care plan and will follow as needed.
Note to case management of equipment requested for discharge:
Recommend follow up at wound care center upon discharge.
--- NOTE | 2023-06-24 10:46 | WOUNDNOTE ---
[facility] RN note: Patient admitted with sepsis secondary to complicated UTI, septic shock. Patient resides at SNF. Patient stated he has an air mattress at SNF.
See H&P for complete history.
PMH: dementia, IDDM, severe PAD, Murry (penile meatal tear)
Wound Location and type/assessment: Patient admitted with: Dry gangrene ulcer L heel, L medial, anterior and lateral foot, L great toe tip. 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 Discolored scarred sacral/buttocks from previous pressure injury. L anterior
upper calf with scattered purple ecchymotic areas.
Appetite: currently NPO.
Pressure redistribution devices in place: [employer] air bed. Patient assists with turning. He can lift his LLE off bed. Soft heel relief boot.
Plan: Betadine and ABD pad applied to L heel/foot wounds. Swabbed L great toe tip with Betadine. Patient turned to L semi side lying position with help from PCT Yonatan. Patient's soft heel relief boot reapplied LLE. Air chair cushion given.
Will confirm orders with hospitalist and discussed with ROCIO Braga.
Care plan to be updated and will follow as needed.
--- NOTE | 2023-06-24 10:58 | W.PN.HOSP.TC ---
Today's Communication/Plan
-
see bold
Assessment / Plan
Assessment / Plan
Gen: NAD, AAOx2-3.
Eyes: EOMI, PERRLA, no scleral icterus.
Neck: supple.
CV: remains RRR, +S1/S2, no m/r/g.
Resp: remains CTAB, no rales, wheezes, or rhonchi.
Abd: remains +BS, soft, NT, ND
Skin: No rashes.
Neuro: CN 2-12 intact, non-focal.
Psych: Normal mood and affect.
06/23/23 02:28 Urine Urine Culture - Final
Grecia albicans
06/23/23 02:28 Blood/Venous Blood Culture - Preliminary
No Growth in 24 hours- Final report to follow
06/23/23 02:28 Blood/Venous Blood Culture - Preliminary
No Growth in 24 hours- Final report to follow
06/23/23 02:44 Nasal Swab Influenza Types A & B (GLORIA) - Final
Negative for Influenza A & B, NAAT
Negative results must be combined with clinical observations
and patient history.
Nucleic Acid Amplification test (NAAT)performed on the
[employer] platform.
CT A/P:
1. � Severely limited examination without IV and oral contrast. Motion artifact limits the exam. Artifact from the patient's arms limits evaluation for subtle abnormality.
2. � Solid organs unchanged from previous CT 4.5 months ago.
3. � Large amount of stool throughout the colon consistent with constipation. Mild wall thickening of the distal rectosigmoid region, with an area of adjacent stranding and inflammation, differential includes diverticulosis with diverticulitis
versus stercoral colitis. There is fecal impaction in the rectum.
4. � Limited distention of the urinary bladder, there is a Murry catheter in place and the wall is diffusely thickened.
5. � No significant free fluid or free air. No fluid collection to suggest an abscess.
6. � Moderate hiatal hernia.
7. � Increased moderate bibasilar consolidation and small pleural effusions. Does the patient aspirate?
8. 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
9. � Atherosclerotic vascular disease. Not significantly changed from prior CT. Limited exam without IV contrast.
CT brain: There are no acute intracranial abnormalities. 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 There is moderate diffuse cortical atrophy with extensive nonspecific white matter changes.
CXR:
1. Mild central interstitial prominence, which may be related to low inspiratory volumes or mild pulmonary edema.
2. Haziness of the left hemidiaphragm, which may represent left lower lobe subsegmental atelectasis, pneumonia, and/or small left pleural effusion. Consider PA and lateral views when possible.
3. Mild cardiomegaly.
Severe sepsis due to probable candidal UTI:
-ID following
-Leukocytosis resolved
-BCxs NG, UCx grecia
-cont Fluconazole
-c/s Uro for SPT
-cont IVFs (decrease to 125cc/hr)
-cont Midodrine
Rectosigmoid stercoral colitis versus diverticulitis with fecal impaction:
-Enema x 1 now
-start Miralax/senna
-cont Unasyn
Other problems:
DM2 with Diabetic neuropathy: cont Lantus/SSI/accuchecks
Severe PAD LLE: cont ASA/Plavix/statin/cilostazol
BPH:Continue tamsulosin
Chronic anemia: Holding iron supplement
Essential hypertension: Holding metoprolol
Limited DNR
Anticipated Discharge: > 48 hours
Subjective/Interval History
-
Date of Service: June 24, 2023
Pt denies CP/SOB.
Objective Data
-
Labs:
Laboratory Results
06/24/23
05:54
WBC 10.5
Hgb 8.4 L
Hct 25.1 L
Plt Count 361
Sodium 131 L
Potassium 4.3
Chloride 104
Carbon Dioxide 24
BUN 25 H
Creatinine 1.1
Glucose 110 H
Calcium 8.2 L
Vital Signs:
Vital Signs
Temp Pulse Resp BP Pulse Ox
99.3 F 114 29 102/59 98
06/24/23 07:05 06/24/23 08:00 06/24/23 08:00 06/24/23 08:00 06/24/23 10:00
I&O
06/23/23 06/24/23 06/25/23
06:59 06:59 06:59
Output Total 4550 / 4550
Balance -4550 / -4550
[2023-06-24 11:59] LABS: Glucose - Point of Care 135 mg/dl (70-99)
[2023-06-24] MEDS: UNASYN IV ×3 (11:59→23:37)
[2023-06-24] MEDS: ProAmatine 5 MG PO ×2 (13:17→17:26)
[2023-06-24] MEDS: SENOKOT 17.1999999999999993 MG PO ×2 (13:17→20:11)
[2023-06-24] MEDS: MIRALAX 17 GRAMS PO ×2 (13:17→20:11)
--- NOTE | 2023-06-24 17:05 | PTCARENOTE ---
assessment as charted. milk and molasses enema ordered but not given as pt was incontinent of very large bowel movement. miralax and senna started per order.
[2023-06-24] MEDS: DIFLUCAN 200 MG 100 IV (17:24)
[2023-06-24] MEDS: FLORASTOR 250 MG PO (17:26)
[2023-06-24] MEDS: LIPITOR 20 MG PO (17:26)
[2023-06-24 17:50] LABS: Glucose - Point of Care 149 mg/dl (70-99)
[2023-06-24] MEDS: DUONEB 3 ML INH (18:22)
[2023-06-24] MEDS: MUCINEX 600 MG PO (20:46)
[2023-06-24] MEDS: LANTUS 0.100000000000000006 UNITS SC (21:08)
[2023-06-24 21:20] LABS: Glucose - Point of Care 183 mg/dl (70-99)
--- NOTE | 2023-06-24 22:00 | PTCARENOTE ---
Assume care from AM RN. daughter at bedside. AAOx1, anxious at times. SEMINOLE. Lt side weakness. Daughter was concern about this father respiration and saturation. pt O2 was increased to 6L. Pt lung sounds are diminished, coarse at the bases with
expiratory wheezing. Shallow tachypneic breathing. Pt high risk for aspiration. Pt was manually oral suctioned and mcclendon thick mucus output. Occasional wet productive cough. Pt has been ST in the monitor. SLAB MILLER OPERATOR notify about respiratory changes and Xray
order for AM. Will cont with tx plan.
[2023-06-24] MEDS: MORPHINE SULFATE 1 MG IV (23:52)
[2023-06-25] VITALS (15 sets, daily range): BP systolic 101–137; BP diastolic 58–85; BMI 22.5
[2023-06-25] MEDS: LR 1000 IV (05:08)
[2023-06-25] MEDS: UNASYN IV (05:08)
[2023-06-25] MEDS: NOVOLOG FLEXPEN-LOW RESISTANCE SC ×2 (07:55→17:23)
[2023-06-25] MEDS: HEPARIN 5000 UNITS SC ×2 (07:56→20:35)
[2023-06-25] MEDS: PLAVIX 75 MG PO (07:56)
[2023-06-25] MEDS: SENOKOT 17.1999999999999993 MG PO ×2 (07:56→20:35)
[2023-06-25] MEDS: FLORASTOR 250 MG PO ×2 (07:56→16:49)
[2023-06-25] MEDS: FLOMAX 0.400000000000000022 MG PO (07:56)
[2023-06-25] MEDS: ProAmatine 5 MG PO ×3 (07:56→16:49)
[2023-06-25] MEDS: MUCINEX 600 MG PO (07:56)
[2023-06-25] MEDS: MIRALAX 17 GRAMS PO (07:56)
[2023-06-25] MEDS: LOW STRENGTH ASPIRIN 81 MG PO (07:56)
[2023-06-25 08:06] LABS: Glucose - Point of Care 120 mg/dl (70-99)
--- NOTE | 2023-06-25 09:12 | W.PN.HOSP.TC ---
Addendum entered and electronically signed by Denilson Arrington MD 06/25/23 15:09:
Severe sepsis due only to candidal UTI
Dry gangrene ulcer L heel, L medial, anterior and lateral foot, L great toe tip arterial ulcers with dry gangrene
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
Acute non-cardiac pulmonary edema due to fluid overload
Original Note:
Today's Communication/Plan
-
see bold
Assessment / Plan
Assessment / Plan
Gen: NAD, Awake and alert, NCAT
Eyes: EOMI, PERRLA, no scleral icterus.
Neck: supple.
CV: tachy, reg rhythm, +S1/S2, no m/r/g.
Resp: rales in the bases, expiratory wheezes and mild rhonchi
Abd: continues to remain +BS, soft, NT, ND
Skin: No rashes.
Neuro: CN 2-12 intact, non-focal.
Psych: Normal mood and affect.
06/23/23 02:28 Blood/Venous Blood Culture - Preliminary
No Growth in 48 hours- Final report to follow
06/23/23 02:28 Blood/Venous Blood Culture - Preliminary
No Growth in 48 hours- Final report to follow
06/23/23 02:28 Urine Urine Culture - Final
Hallie albicans
06/23/23 02:44 Nasal Swab Influenza Types A & B (GLORIA) - Final
Negative for Influenza A & B, NAAT
Negative results must be combined with clinical observations
and patient history.
Nucleic Acid Amplification test (NAAT)performed on the
[employer] platform.
CT A/P:
1. � Severely limited examination without IV and oral contrast. Motion artifact limits the exam. Artifact from the patient's arms limits evaluation for subtle abnormality.
2. � Solid organs unchanged from previous CT 4.5 months ago.
3. � Large amount of stool throughout the colon consistent with constipation. Mild wall thickening of the distal rectosigmoid region, with an area of adjacent stranding and inflammation, differential includes diverticulosis with diverticulitis
versus stercoral colitis. There is fecal impaction in the rectum.
4. � Limited distention of the urinary bladder, there is a Murry catheter in place and the wall is diffusely thickened.
5. � No significant free fluid or free air. No fluid collection to suggest an abscess.
6. � Moderate hiatal hernia.
7. � Increased moderate bibasilar consolidation and small pleural effusions. Does the patient aspirate?
8. 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
9. � Atherosclerotic vascular disease. Not significantly changed from prior CT. Limited exam without IV contrast.
CT brain: There are no acute intracranial abnormalities. 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 There is moderate diffuse cortical atrophy with extensive nonspecific white matter changes.
CXR:
1. Mild central interstitial prominence, which may be related to low inspiratory volumes or mild pulmonary edema.
2. Haziness of the left hemidiaphragm, which may represent left lower lobe subsegmental atelectasis, pneumonia, and/or small left pleural effusion. Consider PA and lateral views when possible.
3. Mild cardiomegaly.
Severe sepsis due to probable candidal UTI:
-ID following
-Leukocytosis resolved
-BCxs NG, UCx hallie
-cont Fluconazole
-as per ID, no need for Uro to evaluate for SPT at this time. Can be addressed after discharge.
-stop IVFs as below
-cont Midodrine
Acute hypoxemic respiratory failure:
-was on 6L NC O2 this AM, just turned down to 5L NC O2
-check CXR
Rectosigmoid stercoral colitis versus diverticulitis with fecal impaction:
-large BM on 06/24/23
-cont Miralax/senna
-cont Augmentin
RADHA (POA) due to severe sepsis:
-resolved with IVFs
Other problems:
Hyponatremia
DM2 with Diabetic neuropathy: cont Lantus/SSI/accuchecks
Severe PAD LLE: cont ASA/Plavix/statin/cilostazol
BPH: Continue tamsulosin
Chronic anemia: Holding iron supplement
Essential hypertension: restart metoprolol
Limited DNR
Anticipated Discharge: > 48 hours
Subjective/Interval History
-
Date of Service: June 25, 2023
Pt offers no new complaints.
Objective Data
-
Vital Signs:
Vital Signs
Temp Pulse Resp BP Pulse Ox
98.8 F 105 23 117/72 94
06/25/23 03:30 06/25/23 04:00 06/25/23 04:00 06/25/23 04:00 06/25/23 04:00
I&O
06/24/23 06/25/23 06/26/23
06:59 06:59 06:59
Intake Total 3755 / 3755
Output Total 4550 / 4550 1974
Balance -4550 / -4550 1780 / 1780
--- NOTE | 2023-06-25 09:42 | PTCARENOTE ---
this am pt alarming afib on winter monitor. ekg done showed sinus tachy. pt coughing with po intake this am and reports shortness of breath sat 97 on 5 liters. lung sounds are diminished with rhonchi and exp wheexe. iv fluids stopped per order.
discussed with hospitalist and speech therapy. pt is currently off floor for chest x ray and video swallowing exam.
--- NOTE | 2023-06-25 10:22 | W.PN.ID1 ---
Date of Service
Date of Service: June 25, 2023
Today's Communication
- continue fluconazole for a 14 day course
- recheck renal function in am, if further improved may dose adjust fluconazole
- stop unasyn, start augmentin - 5 day total course 06/23-06/27
Assessment / Plan
AMS - improved
Probable Candidal UTI
Leukocytosis
RADHA resolved
Sepsis
- blood cultures x2 in progress - no growth to date
- urine culture x2 100K C albicans
- QTc remains acceptable
- continue fluconazole for a 14 day course
- recheck renal function in am, if further improved may dose adjust fluconazole
- stop unasyn, start augmentin - 5 day total course 06/23-06/27
- soria replaced this admission
-
Chief Complaint
-: Clinical Sepsis and UTI
Subjective / Review of Systems
no further fevers
bp stable
hgb stable
cr not rechecked this am
spoke with urology yesterday dr garber who recommended outpatient assessment for suprapubic cath which is reasonable
had several large formed BMs
Vital Signs / Physical Exam
Vital Signs
Vital Signs
Temp Pulse Resp BP Pulse Ox
98.2 F 96 23 125/68 97
06/25/23 07:05 06/25/23 08:00 06/25/23 08:00 06/25/23 08:00 06/25/23 09:52
Physical Exam
Constitutional: No Acute Distress and Chronically Ill
Cardiovascular: Regular Rate and S1/S2; Negative Murmur or Rub
Pulmonary: Clear and Symmetric; Negative Wheezes or Rales
Gastrointestinal: Soft, Non Tender, Non Distended and Normal Bowel Sounds
Genito-Urinary: Soria
Skin: Warm and Dry; Negative Rash or Jaundice
Objective Data
Lab Data
Lab Results
06/24/23 05:54
06/24/23 05:54
Estimated Creat Clear 42 ml/min 06/24/23 05:54
Lactic Acid Cancelled 06/23/23 06:30
Total Bilirubin 0.6 mg/dl (0.2-1.3) 06/23/23 02:28
AST 22 U/L (17-59) 06/23/23 02:28
ALT 12 U/L (0-50) 06/23/23 02:28
Alkaline Phosphatase 116 U/L (38-126) 06/23/23 02:28
Most recent labs reviewed.
Micro Results:
06/23/23 02:28 Blood Culture - Preliminary
Blood/Venous No Growth in 48 hours- Final report to follow
06/23/23 02:28 Blood Culture - Preliminary
Blood/Venous No Growth in 48 hours- Final report to follow
06/23/23 02:28 Urine Culture - Final
Urine Grecia albicans
06/23/23 02:44 Influenza Types A & B (GLORIA) - Final
Nasal Swab Negative for Influenza A & B, NAAT
Negative results must be combined with clinical observations
and patient history.
Nucleic Acid Amplification test (NAAT)performed on the
[employer] platform.
Care Review
Plan reviewed with: Physician (Dr Arrington - )
--- NOTE | 2023-06-25 11:18 | PN.CDI ---
CDI
- -
CDI:
Physician Documentation Request
Admit Date: 06/23/23 06:54
Dear Doctor Murphy,
Please review the following and provide your response in the progress notes.
Clinical Indicators:
- Patient admit for severe sepsis
- Pulse ox 87-89% - placed on 5L O2
- Documented pulse ox 95-97% on 5-6L O2
Please clarify which of the following accurately represents the patient's respiratory status:
Acute hypoxic respiratory failure
Hypoxia
Other
Additional information for Respiratory Failure:
Recognized criteria for Respiratory Failure (Source: [facility] Apr 2013)
ABGs: (1 or more) Symptoms Please indicate type if known
1. p)2 <60 or RA SPO2 <91% on RA 1. Tachypnea, SOB, dyspnea Hypoxic
2. pCO2 50 and pH <7.35 2. Use of accessory muscles Hypercapnic
3. pO2 decrease of pCO2 increase by 3. Pallor or cyanosis Hypoxic and Hypercapnic
10 mmHg from baseline if known 4. Anxiety or restlessness Unable to determine
5. Unable to speak in full sentences
Supplemental O2 of > 40% (5LPM) Intubation is not required
Use of terms such as suspected, likely, concern for, or probable (associated with a specific diagnosis that is being evaluated, monitored, or treated as if it exists) are acceptable and can be coded in the inpatient setting, when documented at the
time of discharge.
Thank you,
Samanta Leung RN
CDI Specialist
Please use your independent medical judgment in providing your response.
--- NOTE | 2023-06-25 11:21 | PN.CDI ---
CDI
- -
CDI:
Physician Documentation Request
Admit Date: 06/23/23 06:54
Dear Doctor Murphy,
Please review the following and provide your response in the progress notes.
Clinical Indicators:
- 06/24 PN 'mild pulmonary edema' based on CXR
- 06/23 CXR 'Mild central interstitial prominence, which may be related to low inspiratory volumes or mild pulmonary edema'
Please clarify the acuity and etiology of the pulmonary edema:
Acute non-cardiac pulmonary edema due to fluid overload
Acute non-cardiac pulmonary edema due to other cause (please specify)
Acute pulmonary edema due to heart failure (please specify type and acuity)
Type: systolic, diastolic, combined or other type
Acuity: acute (new onset), chronic or acute on chronic
Chronic pulmonary edema due to non-cardiac etiology (specify cause)
Chronic pulmonary edema due to heart failure - (specify type and acuity as above)
Other
Use of terms such as suspected, likely, concern for, or probable (associated with a specific diagnosis that is being evaluated, monitored, or treated as if it exists) are acceptable and can be coded in the inpatient setting, when documented at the
time of discharge.
Thank you,
Samanta Leung RN
CDI Specialist
Please use your independent medical judgment in providing your response.
--- NOTE | 2023-06-25 11:29 | PN.CDI ---
CDI
- -
CDI:
Physician Documentation Request
Admit Date: 06/23/23 06:54
Dear Doctor Murphy,
Please review the following and provide your response in the progress notes.
Clinical Indicators:
- 06/24 Wound note indicates:
- Dry gangrene ulcer L heel, L medial, anterior and lateral foot, L great toe tip arterial ulcers with dry gangrene
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
Physician documentation of the type and location of wounds is required for compliant documentation. Based on the above clinical findings and your assessment, please provide the following in your progress note:
1. Location of the ulcer/wound, including laterality.
2. Type (etiology) of ulcer/wound:
- Diabetic ulcer
- Arterial (ischemic) ulcer
- Traumatic wound
- Venous stasis ulcer
- Pressure (decubitus) ulcer
- Non-healing surgical wound
- Other
- Unable to determine
3. For a non-pressure ulcer, please indicate the depth/severity:
- Limited to the breakdown of skin
- With fat layer exposed
- With necrosis of muscle
- With necrosis of bone
- Other
- Unable to determine
Use of terms such as suspected, likely, concern for, or probable (associated with a specific diagnosis that is being evaluated, monitored, or treated as if it exists) are acceptable and can be coded in the inpatient setting, when documented at the
time of discharge.
Thank you,
Samanta Leung RN
CDI Specialist
Please use your independent medical judgment in providing your response.
*Source: National Pressure Ulcer Advisory Panel (NPUAP)
--- NOTE | 2023-06-25 11:34 | PTOTSP ---
Video Swallow Examination
Patient with mild-moderate oral and moderate pharyngeal dysphagia. Aspiration with a cough response observed with thin liquids via tsp in 2/3 trials and nectar via straw. Cough did not fully clear contrast from larynx with nectar thick liquids.
Coughing also noted in absence of PO.
There was also concern for retrograde flow of honey thick liquids from the upper esophagus to pyriform sinuses x1. Retention in distal esophagus observed during esophageal sweep at end of study.
Recommend downgrade in solids given concern for premature spillage of solids while chewing to the pyriform sinuses as well as increased work of breathing at this time. Recommend liquid downgrade given nursing noted coughing with nectar/mildly thick
liquids via cup at the bedside AND patient with delay in swallow onset with this consistency. Swallow onset was timely with honey via tsp. Can advance solids and liquids bedside with ACCOUNT LEADER as appropriate.
Recommend:
1. Cautious IDDSI Level 4 (Puree), IDDSI Level 3 (Moderately Thick liquids) via TSP
2. Medications - crushed in puree if medically cleared to do so
3. FULL supervision, assist as needed to use strategies
4. Strategies: small single sips/bites, slow rate, ensure patient swallows before next sip/bite, reflux precautions (upright for 30 minutes after PO intake)
5. Oral care 3-5x daily
6. Hold aspiration risk hydration protocol given current respiratory status
7. Continued dysphagia tx at the acute care level to provide education about dysphagia/aspiration risks, instruct in compensations, and determine if/when diet/liquid advancement appropriate.
--- NOTE | 2023-06-25 11:36 | PN.CDI ---
CDI
- -
CDI:
Physician Documentation Request
Admit Date: 06/23/23 06:54
Dear Doctor Murphy,
Please review the following and provide your response in the progress notes.
Clinical Indicators:
- Patient admit for severe sepsis
- 06/24 PN indicates on CXR ' Haziness of the left hemidiaphragm, which may represent...pneumonia'
- 'Severe sepsis due to probable candidal UTI'
- IV abx Unasyn, Vancomycin, Zosyn given
Please clarify the likely/suspected etiology of sepsis:
Severe sepsis multifactorial due to candidal UTI and pneumonia
Severe sepsis due only to candidal UTI
Other
Use of terms such as suspected, likely, concern for, or probable (associated with a specific diagnosis that is being evaluated, monitored, or treated as if it exists) are acceptable and can be coded in the inpatient setting, when documented at the
time of discharge.
Thank you,
Samanta Leung RN
CDI Specialist
Please use your independent medical judgment in providing your response.
[2023-06-25] MEDS: TOPROL XL 12.5 MG PO (11:44)
[2023-06-25] MEDS: NOVOLOG FLEXPEN-LOW RESISTANCE 1 UNITS SC (12:29)
[2023-06-25 12:38] LABS: Glucose - Point of Care 153 mg/dl (70-99)
[2023-06-25] MEDS: LOPRESSOR 5 MG IV (15:58)
[2023-06-25] MEDS: DIFLUCAN 200 MG 100 IV (16:07)
[2023-06-25 17:16] LABS: Glucose - Point of Care 145 mg/dl (70-99)
--- NOTE | 2023-06-25 18:21 | PTCARENOTE ---
pts heart rate as high as 1180 this afternoon. high rate not sustained and pt denies any symptoms. dr Arrington notified. iv lopressor given per order and heart rate now in 110s. sinus rythym on monitor.
[2023-06-25] MEDS: AUGMENTIN 875 MG/125 MG 1 TABLET PO (20:35)
[2023-06-25] MEDS: MIRALAX PO (20:35)
[2023-06-25] MEDS: MUCINEX PO (20:44)
[2023-06-25] MEDS: LANTUS 0.100000000000000006 UNITS SC (21:21)
[2023-06-25 21:34] LABS: Glucose - Point of Care 162 mg/dl (70-99)
[2023-06-25] MEDS: DUONEB 3 ML INH (23:25)
--- NOTE | 2023-06-25 23:35 | PTCARENOTE ---
Received pt at start of shift. aaox1, confused, garbled speech, expressive aphasia. Saying random things that are inappropriate to the conversation. ST on monitor 110's. At times will alarm afib on monitor, but there are clear P waves.... in & out
of SA & ST. Started shift on 5LNC, then around 2300 began wheezing, WOB increased, tachypneic. RT up to see pt, neb given, o2 raised to 8LMF. Murry in place & draining. All dressings CDI. Meds crushed in applesauce. Denies pain. Bed alarm on. Q2T.
BPs stable. Will monitor.
[2023-06-26] VITALS (18 sets, daily range): BP systolic 86–134; BP diastolic 50–102; BMI 22.5
--- NOTE | 2023-06-26 00:53 | PTCARENOTE ---
Pt HR up to 180bpm for a couple seconds. Pt awake in bed. Denies CP. EKG done, read ST. Looks like SA. Will monitor.
--- NOTE | 2023-06-26 02:04 | PTCARENOTE ---
SCRUBBING MACHINE OPERATOR aware of change in HR. Mag added with am labs. Pt is the same, denies CP, Bp stable. Still tachypneic & ARMENDARIZ at times. HR is all over the place, 90-180's but never sustaining. Will monitor
[2023-06-26 03:45] LABS: Hematocrit 32.3 % (39.0-52.0); Hemoglobin 10.6 g/dL (13.0-18.0); Mean Corp Hgb Conc. 32.8 g/dL (33.0-37.0); Mean Corpuscular Hgb 29.9 pg (27.0-31.0); Mean Corpuscular Volume 91.2 fL (80.0-94.0); Mean Platelet Volume 8.5 fL (7.4-10.4); Platelet Count 402 10^3/uL (130-400); Red Blood Cell Count 3.54 10^6/uL (4.70-6.10); Red Cell Dist. Width 17.2 % (11.5-14.5); White Blood Cell Count 12.7 10^3/uL (4.8-10.8)
[2023-06-26 03:50] LABS: Blood Urea Nitrogen 12 mg/dl (9-20); Calcium 8.2 mg/dl (8.4-10.2); Carbon Dioxide 21 mmol/L (22-30); Chloride 102 mmol/L (98-107); Estimated Creatinine Clearance 65 ml/min; Glucose 148 mg/dl (70-99); Magnesium 1.5 mg/dl (1.6-2.3); Potassium 3.6 mmol/L (3.5-5.1); Sodium 133 mmol/L (135-145); eGFR > 60.00
[2023-06-26] MEDS: MAGNESIUM SULFATE 100 IV ×2 (04:08→09:04)
--- NOTE | 2023-06-26 04:11 | PTCARENOTE ---
Pt o2 requirements have increased from 5LNC to 12LMF so far overnight. HR still jumping around from 100-180's frequently. Pt tachypneic & SOB. Crackles heard. VICE PRESIDENT BIOSTATISTICS aware. CXR order in. Labs drawn, magnesium rider also ordered and given. Pt denies
any complaints when asked.
[2023-06-26 07:26] LABS: Glucose - Point of Care 176 mg/dl (70-99)
[2023-06-26] MEDS: AUGMENTIN 875 MG/125 MG 1 TABLET PO ×2 (07:28→19:27)
[2023-06-26] MEDS: HEPARIN 5000 UNITS SC ×2 (07:28→19:27)
[2023-06-26] MEDS: PLAVIX 75 MG PO (07:28)
[2023-06-26] MEDS: LIPITOR 20 MG PO (07:28)
[2023-06-26] MEDS: MUCINEX 600 MG PO ×2 (07:28→19:27)
[2023-06-26] MEDS: SENOKOT 17.1999999999999993 MG PO (07:28)
[2023-06-26] MEDS: LOW STRENGTH ASPIRIN 81 MG PO (07:28)
[2023-06-26] MEDS: FLOMAX 0.400000000000000022 MG PO (07:28)
[2023-06-26] MEDS: TOPROL XL 12.5 MG PO ×2 (07:29→09:00)
[2023-06-26] MEDS: ProAmatine 5 MG PO ×3 (07:29→17:42)
[2023-06-26] MEDS: MIRALAX 17 GRAMS PO (07:29)
--- NOTE | 2023-06-26 08:25 | PTCARENOTE ---
Rec'd pt this AM. HR continues to be elevated up to 160s. PO meds given. BP stable. Discussed with Dr. Arrington.
--- NOTE | 2023-06-26 08:40 | W.PN.HOSP.TC ---
Today's Communication/Plan
-
see bold
Assessment / Plan
Assessment / Plan
Gen: NAD, Awake and alert, NCAT
Eyes: EOMI, PERRLA, no scleral icterus.
Neck: supple.
CV: remains tachy, reg rhythm, +S1/S2, no m/r/g.
Resp: rales in the bases and midlung harp
Abd: +BS, soft, NT, ND
Skin: No rashes.
Neuro: remains CN 2-12 intact, non-focal.
Psych: Normal mood and affect.
06/23/23 02:28 Blood/Venous Blood Culture - Preliminary
No Growth in 72 hours- Final report to follow
06/23/23 02:28 Blood/Venous Blood Culture - Preliminary
No Growth in 72 hours- Final report to follow
06/23/23 02:28 Urine Urine Culture - Final
Grecia albicans
06/23/23 02:44 Nasal Swab Influenza Types A & B (GLORIA) - Final
Negative for Influenza A & B, NAAT
Negative results must be combined with clinical observations
and patient history.
Nucleic Acid Amplification test (NAAT)performed on the
[employer] ID NOW platform.
CT A/P:
1. � Severely limited examination without IV and oral contrast. Motion artifact limits the exam. Artifact from the patient's arms limits evaluation for subtle abnormality.
2. � Solid organs unchanged from previous CT 4.5 months ago.
3. � Large amount of stool throughout the colon consistent with constipation. Mild wall thickening of the distal rectosigmoid region, with an area of adjacent stranding and inflammation, differential includes diverticulosis with diverticulitis
versus stercoral colitis. There is fecal impaction in the rectum.
4. � Limited distention of the urinary bladder, there is a Murry catheter in place and the wall is diffusely thickened.
5. � No significant free fluid or free air. No fluid collection to suggest an abscess.
6. � Moderate hiatal hernia.
7. � Increased moderate bibasilar consolidation and small pleural effusions. Does the patient aspirate?
8. 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
9. � Atherosclerotic vascular disease. Not significantly changed from prior CT. Limited exam without IV contrast.
CT brain: There are no acute intracranial abnormalities. 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 There is moderate diffuse cortical atrophy with extensive nonspecific white matter changes.
CXR:
1. Moderate pulmonary edema, slightly improved compared to prior chest x-ray.
2. Small bilateral pleural effusions are suspected. Consider PA and lateral views when possible.
Severe sepsis due to probable candidal UTI:
-s/p IVFs on admission
-ID following
-Leukocytosis resolved
-BCxs NG, UCx grecia
-cont Fluconazole
-as per ID, no need for Uro to evaluate for SPT at this time. Can be addressed after discharge.
-cont Midodrine
Acute hypoxemic respiratory failure:
-worsening, now on 12L midflow O2
-clinical picture (and CXR) that of pulm edema, like acute CHF
-Lasix 40mg IV x 1 now
-check echo
-c/s cardiology
-with tachycardia increase Toprol XL
Rectosigmoid stercoral colitis versus diverticulitis with fecal impaction:
-large BM on 06/24/23
-cont Miralax/senna
-cont Augmentin
RADHA (POA) due to severe sepsis:
-resolved with IVFs
Other problems:
Hypomagnesemia, 2g IV Mg
Hyponatremia
DM2 with Diabetic neuropathy: cont Lantus/SSI/accuchecks
Severe PAD LLE: cont ASA/Plavix/statin/cilostazol
BPH: Continue tamsulosin
Chronic anemia: Holding iron supplement
Essential hypertension: cont metoprolol
Limited DNR
Anticipated Discharge: > 48 hours
Subjective/Interval History
-
Date of Service: June 26, 2023
Pt denies CP/SOB.
Objective Data
-
Labs:
Laboratory Results
06/26/23
03:27
WBC 12.7 H
Hgb 10.6 L D
Hct 32.3 L
Plt Count 402 H
Sodium 133 L
Potassium 3.6
Chloride 102
Carbon Dioxide 21 L
BUN 12
Creatinine 0.7
Glucose 148 H
Calcium 8.2 L
Vital Signs:
Vital Signs
Temp Pulse Resp BP Pulse Ox
98.6 F 160 30 99/75 94
06/26/23 05:01 06/26/23 07:29 06/26/23 06:00 06/26/23 07:29 06/26/23 06:00
I&O
06/25/23 06/26/23 06/27/23
06:59 06:59 06:59
Intake Total 3755 / 3755 350 / 350 100 / 100
Output Total 1974 / 1974 1000 / 1000
Balance 1780 / 1780 -650 / -650 100 / 100
[2023-06-26] MEDS: FLORASTOR 250 MG PO ×2 (08:59→17:42)
[2023-06-26] MEDS: LASIX 40 MG IV (09:00)
[2023-06-26] MEDS: NOVOLOG FLEXPEN-LOW RESISTANCE 1 UNITS SC (09:46)
--- NOTE | 2023-06-26 09:57 | CON.CAR ---
Addendum entered and electronically signed by Leeroy Fofana MD 06/26/23 13:59:
I saw and examined the patient.
The NUCLEAR FUEL ENRICHMENT TECHNICIAN or PA's note was reviewed and I agree with the note.
Comment: Awake but confused
Neck: Supple, no JVD, HJR, carotids +2 B/L, no bruits bilaterally.
Heart: Non displaced PMI, RRR, no murmurs, No S3, S4, no rubs.
Lungs: Scattered rhonchi
Abdomen: Normal bowel sounds, soft, non-tender, non-distended.
Extremities: No clubbing, cyanosis or edema bilaterally.
Neuro: Awake but confused
Ajit has a history of hypertension, diabetes, PAD, dementia, [facility]. He was noted to be more lethargic and there was concern for urinary tract infection as he has a chronic indwelling catheter. In the ER he was noted to be
septic with complicated UTI with hypotension. He also started on midodrine and given IV fluids. He was noted to have increasing oxygen requirements in past 24 hours requiring 12 L of oxygen. Chest x-ray showed pulmonary edema. He was given IV
Lasix.
Also noted to have tachycardia. This was mostly sinus tachycardia. There is probably also episodes of atrial tachycardia. Will increase metoprolol. No anticoagulation for now. Conservative treatment given comorbid illnesses. Will assess after
IV Lasix.
Original Note:
Consultation
Consultation Request
Date/Time Consultation Requested: 06/26/2023
Date/Time Consultation Performed: 06/26/2023 at 0930
Requesting Provider: Dr. Arrington
Performing Provider: Dr. Fofana
Reason for Consultation: Possible CHF
Medical History
-
History of Present Illness:
HPI: Ajit is an 87-year-old male with past medical history of hypertension, hyperlipidemia, insulin-dependent diabetes, PAD status post right AKA, dementia who presented to ER for evaluation of increased confusion and lethargy. [facility]
staff where he resides noticed that he had been more lethargic and there was concern for urinary tract infection as he has chronic indwelling catheter. On arrival to the emergency room, he was noted to have sepsis due to complicated UTI with
hypotension. He was started on fluconazole as urine culture grew Grecia. Blood cultures were negative. Outpatient blood pressure medicines were held. He was also started on midodrine and given IV fluids. Overnight 06/25/2013 to 06/26/2023, he
was noted to have increased oxygen requirements, up to 12 L mid flow. Chest x-ray was repeated and showed pulmonary edema. He was given a dose of IV Lasix this AM and has been diuresing well with 400 cc of urine output already noted. He denies
any complaints including shortness of breath, chest pain, dizziness, or lightheadedness. No edema noted on left lower extremity. Cardiology consulted given concern for possible heart failure.
PMH:
Hypertension
HLD
IDDM
PAD
s/p R AKA
Dementia
Past Medical History
Past Medical History: Other (In HPI)
Past Surgical History: Cholecystectomy and Orthopedic (Right AKA)
Social History
Tobacco: Former Smoker
Alcohol: None
Drug: None
Personal:
Living: [facility]
Employment: Retired
Family History
Family History: Reviewed & Not Pertinent
Allergies / Home Medications
Allergy/AdvReac Type Severity Reaction Status Date / Time
No Known Allergies Allergy Verified 06/23/23 02:42
Medication Instructions Recorded Confirmed Type
acetaminophen 325 mg tablet 325 mg PO Q4HPRN PRN mild 02/05/23 04/04/23 History
pain/fever>100.4
ascorbic acid (vitamin C) 500 mg 500 mg PO DAILY Supplement 02/05/23 06/23/23 History
tablet
aspirin 81 mg chewable tablet 81 mg PO DAILY Blood Clot 02/05/23 06/23/23 History
Prevention/Tx
atorvastatin 20 mg tablet 20 mg PO QPM High Cholesterol 02/05/23 06/23/23 History
cilostazol 50 mg tablet 50 mg PO BID@0830,1830 Blood Clot 02/05/23 06/23/23 History
Prevention/Tx
clopidogrel 75 mg tablet 75 mg PO DAILY Blood Clot 02/05/23 06/23/23 History
Prevention/Tx
ferrous gluconate 324 mg (38 mg 324 mg PO DAILY Supplement 02/05/23 06/23/23 History
iron) tablet
folic acid 1 mg tablet 1 mg PO DAILY Supplement 02/05/23 06/23/23 History
gabapentin 300 mg capsule 300 mg PO BID@0830,1830 02/05/23 06/23/23 History
Neurological Condition
insulin glargine 100 unit/mL (3 12 unit SC HS Diabetes 02/05/23 04/04/23 History
mL) subcutaneous pen (Lantus
Solostar U-100 Insulin)
melatonin 3 mg tablet 3 mg PO QPM Sleep 02/05/23 04/04/23 History
metformin 500 mg tablet 500 mg PO DAILY Diabetes 02/05/23 06/23/23 History
metoprolol succinate 25 mg 12.5 mg PO DAILY Blood Pressure 02/05/23 06/23/23 History
tablet,extended release 24 hr
tamsulosin 0.4 mg capsule 0.4 mg PO DAILY Lung/Breathing 02/05/23 06/23/23 History
Issues
Povidone-Iodine 5% Solution 1 applic topical DAILY Skin Issues 04/04/23 04/04/23 History
Saccharomyces boulardii 250 mg 250 mg PO BID@0830,1830 probiotic 04/04/23 04/04/23 History
capsule
bisacodyl 10 mg rectal suppository 10 mg AR DAILYPRN PRN if lactulose 04/04/23 04/04/23 History
(Dulcolax (bisacodyl)) is ineffective
gabapentin 100 mg capsule 100 mg PO BID@0830,1830 Pain 04/04/23 06/23/23 History
ipratropium 0.5 mg-albuterol 3 mg 3 ml inhalation R QIDPRN PRN 04/04/23 06/23/23 History
(2.5 mg base)/3 mL nebulization sob/wheezing
soln
lactulose 10 gram/15 mL oral 20 g PO HSPRN PRN constipation 04/04/23 04/04/23 History
solution
sodium phosphates 19 gram-7 118 ml AR DAILYPRN PRN if no bm 04/04/23 04/04/23 History
gram/118 mL enema (Fleet Enema) 8hrs after suppository
sulfamethoxazole 800 1 tab PO BID@0830,1830 Infection 04/04/23 06/23/23 History
mg-trimethoprim 160 mg tablet
(Bactrim DS)
docusate sodium 100 mg capsule 100 mg PO BID Constipation #0 caps 04/10/23 Rx
midodrine 5 mg tablet 5 mg PO TID@0800,1300,1800 Blood 04/10/23 06/23/23 Rx
pressure #0 tabs
oxycodone 15 mg tablet,crush 15 mg PO Q12 Pain #4 tabs 04/10/23 06/23/23 Rx
resistant,extended release 12 hr
(OxyContin)
oxycodone 5 mg tablet 10 mg PO Q6HPRN PRN moderate 04/10/23 Rx
severe pain #8 tabs
atorvastatin 20 mg tablet (Lipitor) 20 mg PO DAILY High Cholesterol 06/23/23 06/23/23 History
insulin aspart U-100 100 unit/mL 100 unit SC TID Diabetes 06/23/23 06/23/23 History
(3 mL) subcutaneous pen (Novolog
FlexPen U-100 Insulin aspart)
levothyroxine 50 mcg tablet 50 mcg PO DAILY Thyroid 06/23/23 06/23/23 History
melatonin 3 mg tablet 3 mg PO HS Sleep 06/23/23 06/23/23 History
sennosides 8.6 mg capsule (senna) 17.2 mg PO DAILY Constipation 06/23/23 06/23/23 History
Review of Systems
-
History Source: Patient
All other systems: Negative unless noted
Physical Exam
Vital Signs
Temp Pulse Resp BP Pulse Ox
98.6 F 110 30 110/68 94
06/26/23 05:01 06/26/23 09:00 06/26/23 06:00 06/26/23 09:00 06/26/23 06:00
Lab Results
06/26/23 03:27
06/26/23 03:27
Physical Exam
General: Well Developed, Well Nourished and No Apparent Distress
HEENT: Normocephalic and Moist Mucous Membranes
Respiratory: Crackles and Non Labored Respirations
Cardiac: S1/S2 and Regular Rhythm
Musculoskeletal: No Clubbing, No Cyanosis and No Edema
Skin: Warm and Dry
Neuro: Awake, Alert and Nonfocal/Grossly Intact
Psych: Calm
Impression / Plan
-
PCP: Dr. Mcgowan
Cardiology: Unknown
Impression:
Sepsis due to candidal UTI
Acute hypoxic respiratory failure
Possible acute heart failure - EF unknown
RADHA
Hypomagnesemia
Hyponatremia
Hypertension
HLD
IDDM
PAD
s/p R AKA
Dementia
Echo 06/26/2023: Study pending
Plan:
-Presented with increased confusion. Found to have candidal UTI. ID following. Continue fluconazole and augmentin per ID recommendations.
-Increased oxygen requirements overnight and 06/26/2023. Cardiology consulted. Concern for acute heart failure with chest x-ray noting moderate pulmonary edema and small b/l pleural effusions.
-Agree with trialing Lasix 40 mg IV x 1. Creatinine stable at 0.7. Of note, did have RADHA earlier this admission with creat as high as 2.2.
-Weight stable at 139 pounds. Unknown baseline. Good urine output noted with 400 cc in Murry following first dose of Lasix.
-Reassess oxygen requirements and creatinine in AM. Likely will require further diuresis.
-Follow daily weights, I&O's
-Check echo.
-Tachycardia noted with heart rate currently in the 100s.
-Continue Toprol 25 mg daily. BP stable w/ midodrine 5mg TID.
-Continue aspirin and Plavix for known PAD. Chronic left lower extremity wounds noted.
-Remains on 12 L mid flow nasal cannula. Wean as able.
-Mag 1.5. Agree with repletion.
HPI: Ajit is an 87-year-old male with past medical history of hypertension, hyperlipidemia, insulin-dependent diabetes, PAD status post right AKA, dementia who presented to ER for evaluation of increased confusion and lethargy. [facility]
staff where he resides noticed that he had been more lethargic and there was concern for urinary tract infection as he has chronic indwelling catheter. On arrival to the emergency room, he was noted to have sepsis due to complicated UTI with
hypotension. He was started on fluconazole as urine culture grew Grecia. Blood cultures were negative. Outpatient blood pressure medicines were held. He was also started on midodrine and given IV fluids. Overnight 06/25/2013 to 06/26/2023, he
was noted to have increased oxygen requirements, up to 12 L mid flow. Chest x-ray was repeated and showed pulmonary edema. He was given a dose of IV Lasix this AM and has been diuresing well with 400 cc of urine output already noted. He denies
any complaints including shortness of breath, chest pain, dizziness, or lightheadedness. No edema noted on left lower extremity. Cardiology consulted given concern for possible heart failure.
Data Reviewed
-
EKG: Tracing Personally Visualized and interpreted
Radiology: Report Reviewed by me
CT Scan: Report Reviewed by me
Labs: Labs Reviewed by me
Old Records: Reviewed
--- NOTE | 2023-06-26 12:01 | W.PN.ID1 ---
Date of Service
Date of Service: June 26, 2023
Today's Communication
- continue fluconazole for a 14 day course 06/23-07/06
- continue augmentin - 5 day total course 06/23-06/27
Assessment / Plan
Candidal UTI
Sepsis - resolved
Hypoxemic Resp failure/CHF
Leukocytosis - resolving
RADHA resolved
Sepsis
- agree with treating CHF
- blood cultures x2 in progress - no growth to date
- urine culture x2 100K C albicans
- continue fluconazole for a 14 day course 06/23-07/06
- continue augmentin - 5 day total course 06/23-06/27
- soria replaced this admission
- recheck QTc in the AM, has been acceptable
- follow clinically
Chief Complaint
-: Clinical Sepsis and UTI
Subjective / Review of Systems
no further fevers
bp stable
Fio2 requirement increased to 12L - CXR most consistent with pulm edema
mild leukocytosis today
cr further improved
lethargic
Vital Signs / Physical Exam
Vital Signs
Vital Signs
Temp Pulse Resp BP Pulse Ox
98.6 F 108 30 134/102 93
06/26/23 05:01 06/26/23 10:00 06/26/23 10:00 06/26/23 10:00 06/26/23 11:55
Physical Exam
Constitutional: No Acute Distress and Chronically Ill
Cardiovascular: Regular Rate and S1/S2; Negative Murmur or Rub
Pulmonary: Symmetric and Non Labored; Negative Wheezes or Rales
Gastrointestinal: Soft, Non Tender, Non Distended and Normal Bowel Sounds
Skin: Warm and Dry; Negative Rash or Jaundice
Objective Data
Lab Data
Lab Results
06/26/23 03:27
06/26/23 03:27
Estimated Creat Clear 65 ml/min 06/26/23 03:27
Lactic Acid Cancelled 06/23/23 06:30
Total Bilirubin 0.6 mg/dl (0.2-1.3) 06/23/23 02:28
AST 22 U/L (17-59) 06/23/23 02:28
ALT 12 U/L (0-50) 06/23/23 02:28
Alkaline Phosphatase 116 U/L (38-126) 06/23/23 02:28
Most recent labs reviewed.
Micro Results:
06/23/23 02:28 Blood Culture - Preliminary
Blood/Venous No Growth in 72 hours- Final report to follow
06/23/23 02:28 Blood Culture - Preliminary
Blood/Venous No Growth in 72 hours- Final report to follow
06/23/23 02:28 Urine Culture - Final
Urine Grecia albicans
06/23/23 02:44 Influenza Types A & B (GLORIA) - Final
Nasal Swab Negative for Influenza A & B, NAAT
Negative results must be combined with clinical observations
and patient history.
Nucleic Acid Amplification test (NAAT)performed on the
[employer] platform.
[2023-06-26 12:02] LABS: Glucose - Point of Care 225 mg/dl (70-99)
[2023-06-26] MEDS: LOPRESSOR 5 MG IV (13:05)
[2023-06-26] MEDS: NOVOLOG FLEXPEN-LOW RESISTANCE 2 UNITS SC ×2 (13:12→17:46)
--- NOTE | 2023-06-26 13:56 | PTCARENOTE ---
Paula Temple, arrived at bedside. Daughter is a [employer]. She states pt it a full DNR. Relayed info to dr. Arrington. Updated daughter on pt's condition.
--- NOTE | 2023-06-26 13:59 | W.PN.UPDATE ---
Update Note
Progress Note Update
CODE STATUS clarified by patient's daughter. He is DNR.
[2023-06-26] MEDS: DIFLUCAN 200 MG PO (14:41)
--- NOTE | 2023-06-26 15:10 | CARDSERVLU ---
Echocardiogram with [facility]ason completed after protocol screening completed. Allergies verified.
Patent IV site: __R AC___
IV site flushed with 0.9% NaCl pre and post administration.
Diluted bolus method utilized to enhance visualization of ventricular pino.
Total volume given: __2.5__ mL
Patient tolerated all procedures well without complications.
[2023-06-26 16:46] LABS: Glucose - Point of Care 240 mg/dl (70-99)
--- NOTE | 2023-06-26 17:04 | PTCARENOTE ---
Pt's HR improved with PRN Lopressor. O2 requirements remain 12L MF. Pt confused. eating only a few bites at meals. Daughter updated a bedside.
[2023-06-26] MEDS: MIRALAX PO (19:17)
[2023-06-26] MEDS: SENOKOT PO (19:17)
--- NOTE | 2023-06-26 20:45 | PTCARENOTE ---
Assume care from AM RN. AAOX1, drowsy, forgetful. ST w/ PAC in the monitor. Pt being wean down O2. Pt is on 10L MF, SaO2 95%. Lung sounds are rhonchi and diminished shallow breathing. Had loose stool. Will cont w/ tx.
[2023-06-26] MEDS: LANTUS 0.100000000000000006 UNITS SC (21:14)
[2023-06-26 21:23] LABS: Glucose - Point of Care 274 mg/dl (70-99)
[2023-06-27] VITALS (13 sets, daily range): BP systolic 90–125; BP diastolic 49–71; BMI 21.3
[2023-06-27] MEDS: LOPRESSOR 5 MG IV (01:09)
[2023-06-27 07:17] LABS: Glucose - Point of Care 173 mg/dl (70-99)
[2023-06-27] MEDS: NOVOLOG FLEXPEN-LOW RESISTANCE 1 UNITS SC ×2 (08:34→12:48)
[2023-06-27] MEDS: DIFLUCAN 200 MG PO (08:35)
[2023-06-27] MEDS: PLAVIX 75 MG PO (08:35)
[2023-06-27] MEDS: HEPARIN 5000 UNITS SC ×2 (08:35→20:12)
[2023-06-27] MEDS: ProAmatine 5 MG PO ×2 (08:35→14:03)
[2023-06-27] MEDS: AUGMENTIN 875 MG/125 MG 1 TABLET PO ×2 (08:35→20:12)
[2023-06-27] MEDS: FLORASTOR 250 MG PO (08:35)
[2023-06-27] MEDS: MUCINEX 600 MG PO ×2 (08:35→20:12)
[2023-06-27] MEDS: FLOMAX 0.400000000000000022 MG PO (08:35)
[2023-06-27] MEDS: TOPROL XL 25 MG PO (08:36)
[2023-06-27] MEDS: SENOKOT 17.1999999999999993 MG PO (08:36)
[2023-06-27] MEDS: LIPITOR 20 MG PO (08:36)
[2023-06-27] MEDS: LOW STRENGTH ASPIRIN 81 MG PO (08:36)
[2023-06-27] MEDS: MIRALAX PO ×2 (09:03→20:17)
--- NOTE | 2023-06-27 09:16 | W.PN.HOSP.TC ---
Today's Communication/Plan
-
see bold
Assessment / Plan
Assessment / Plan
Gen: NAD, Awake and alert, NCAT, appears chronically ill
Eyes: EOMI, PERRLA, no scleral icterus.
Neck: supple.
CV: continues to remain tachy, reg rhythm, +S1/S2, no m/r/g.
Resp: CTAB anteriorly
Abd: +BS, soft, NT, ND
Skin: No rashes.
Neuro: remains CN 2-12 intact, non-focal.
Psych: Normal mood and affect.
06/23/23 02:28 Blood/Venous Blood Culture - Preliminary
No Growth in 4 days- Final report to follow
06/23/23 02:28 Blood/Venous Blood Culture - Preliminary
No Growth in 4 days- Final report to follow
06/23/23 02:28 Urine Urine Culture - Final
Grecia albicans
06/23/23 02:44 Nasal Swab Influenza Types A & B (GLORIA) - Final
Negative for Influenza A & B, NAAT
Negative results must be combined with clinical observations
and patient history.
Nucleic Acid Amplification test (NAAT)performed on the
[employer] platform.
CT A/P:
1. � Severely limited examination without IV and oral contrast. Motion artifact limits the exam. Artifact from the patient's arms limits evaluation for subtle abnormality.
2. � Solid organs unchanged from previous CT 4.5 months ago.
3. � Large amount of stool throughout the colon consistent with constipation. Mild wall thickening of the distal rectosigmoid region, with an area of adjacent stranding and inflammation, differential includes diverticulosis with diverticulitis
versus stercoral colitis. There is fecal impaction in the rectum.
4. � Limited distention of the urinary bladder, there is a Murry catheter in place and the wall is diffusely thickened.
5. � No significant free fluid or free air. No fluid collection to suggest an abscess.
6. � Moderate hiatal hernia.
7. � Increased moderate bibasilar consolidation and small pleural effusions. Does the patient aspirate?
8. 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
9. � Atherosclerotic vascular disease. Not significantly changed from prior CT. Limited exam without IV contrast.
CT brain: There are no acute intracranial abnormalities. 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 There is moderate diffuse cortical atrophy with extensive nonspecific white matter changes.
Echo:
1.� Technically difficult study.� Echo contrast utilized.�
�2.� Normal left ventricular size with severely reduced left ventricular
�systolic function. Akinesis of the mid to apical inferoseptal, inferoseptal,
�inferolateral, anterolateral, anterior and inferior pino.� Mild concentric
�left ventricular hypertrophy.� Estimated left ventricular ejection fraction is
�20 to 25% by visual estimation.� Stage I diastolic dysfunction, suggestive of
�abnormal relaxation.
�3.� Normal right ventricular size and systolic function.
�4.� Mildly dilated left atrium.
�5.� Thickened mitral valve leaflets with mitral annular calcification.� Mild
�mitral regurgitation.
�6.� Calcified trileaflet aortic valve with thickened aortic valve leaflets with
�severely restricted leaflet motion.� Peak and mean transaortic gradients are 14
�and 9 mmHg, consistent with at least mild aortic stenosis.� Low stroke-volume
�index at 21ml/m2.� Mild aortic regurgitation.
�7.� Mild to moderate tricuspid regurgitation with estimated pulmonary artery
�systolic pressure 35 mmHg, assuming a right atrial pressure of 3 mmHg.
�8.� No pericardial effusion.
�9.� No evidence of left ventricular thrombus.
CXR:
1. Moderate pulmonary edema, slightly improved compared to prior chest x-ray.
2. Small bilateral pleural effusions are suspected. Consider PA and lateral views when possible.
Severe sepsis due to probable candidal UTI:
-s/p IVFs on admission
-ID following
-Leukocytosis resolved
-BCxs NG, UCx grecia
-cont Fluconazole
-as per ID, no need for Uro to evaluate for SPT at this time. Can be addressed after discharge.
-cont Midodrine
Acute hypoxemic respiratory failure due to acute HFrEF:
-Echo above, EF 20-25%
-lasix 40mg IV x 1 given 06/26/23
-cont Toprol XL 25mg daily
-currently on 10L midlfow (was on 12L yesterday)
Rectosigmoid stercoral colitis versus diverticulitis with fecal impaction:
-large BM on 06/24/23
-cont Miralax/senna
-cont Augmentin
RADHA (POA) due to severe sepsis:
-resolved with IVFs
Other problems:
Hypomagnesemia, s/p 2g IV Mg
Hyponatremia
DM2 with Diabetic neuropathy: cont Lantus/SSI/accuchecks
Severe PAD LLE: cont ASA/Plavix/statin/cilostazol
BPH: Continue tamsulosin
Chronic anemia: Holding iron supplement
Essential hypertension: cont metoprolol
DNR
Anticipated Discharge: > 48 hours
Subjective/Interval History
-
Date of Service: June 27, 2023
Objective Data
-
Vital Signs:
Vital Signs
Temp Pulse Resp BP Pulse Ox
98.9 F 103 31 116/66 88
06/27/23 07:28 06/27/23 08:36 06/27/23 06:00 06/27/23 08:36 06/27/23 06:00
I&O
06/26/23 06/27/23 06/28/23
06:59 06:59 06:59
Intake Total 350 / 350 280 / 280
Output Total 1000 / 1000 1500 / 1500
Balance -650 / -650 -1220 / -1220
[2023-06-27 10:19] LABS: Hematocrit 29.6 % (39.0-52.0); Mean Corp Hgb Conc. 33.8 g/dL (33.0-37.0); Mean Corpuscular Hgb 30.2 pg (27.0-31.0); Mean Corpuscular Volume 89.4 fL (80.0-94.0); Mean Platelet Volume 8.5 fL (7.4-10.4); Platelet Count 366 10^3/uL (130-400); Red Blood Cell Count 3.31 10^6/uL (4.70-6.10); Red Cell Dist. Width 17.3 % (11.5-14.5)
--- NOTE | 2023-06-27 10:39 | W.PN.CARDCBS ---
Today's Communication / Plan
-
IV Lasix 40 mg x 1 then 20 mg a day
Supplement magnesium and potassium
Impression / Plan
-
PCP: Dr. Mcgowan
Cardiology: Unknown
Impression:
Candidal UTI/clinical sepsis
Acute hypoxic respiratory failure
Acute HFrEF
RADHA
Aortic stenosis, difficult to assess severity, may be low-flow state
Hypomagnesemia
Hyponatremia
Hypertension
HLD
IDDM
PAD
s/p R AKA
Dementia
Echo 06/26/2023: EF 20-25%, akinesis apical inferoseptum, inferoseptal, inferolateral, anterolateral, anterior and inferior pino, mild LVH, normal RV, dilated LA, mild MR, at least mild aortic stenosis, peak gradient 14, could be low-flow, mild
aortic regurgitation, mild to moderate TR, pulmonary artery pressure 35 mmHg
Plan:
He still has evidence of acute HFrEF, manifested as tachypnea, with mild complaints of dyspnea though he is not complaining of dyspnea lying in bed.
.
He never had a proBNP or troponin, will review.
.
He is not on daily furosemide. Will treat with furosemide 40 mg IV now and then 20 mg a day. Given RADHA early in hospital stay along with hypotension we will need to be cautious regarding SARITHA/ARB/spironolactone.
Given age, RADHA, multiple comorbidities etc. will not consider for SGLT2 antagonist.
Continue daily metoprolol with midodrine. Heart rate is modestly elevated but acceptable.
Treatment of Grecia UTI per primary service and ID.
We will continue to follow.
HPI: Ajit is an 87-year-old male with past medical history of hypertension, hyperlipidemia, insulin-dependent diabetes, PAD status post right AKA, dementia who presented to ER for evaluation of increased confusion and lethargy. skilled nursing
staff where he resides noticed that he had been more lethargic and there was concern for urinary tract infection as he has chronic indwelling catheter. On arrival to the emergency room, he was noted to have sepsis due to complicated UTI with
hypotension. He was started on fluconazole as urine culture grew Grecia. Blood cultures were negative. Outpatient blood pressure medicines were held. He was also started on midodrine and given IV fluids. Overnight 06/25/2013 to 06/26/2023, he
was noted to have increased oxygen requirements, up to 12 L mid flow. Chest x-ray was repeated and showed pulmonary edema. He was given a dose of IV Lasix this AM and has been diuresing well with 400 cc of urine output already noted. He denies
any complaints including shortness of breath, chest pain, dizziness, or lightheadedness. No edema noted on left lower extremity. Cardiology consulted given concern for possible heart failure.
Progress Note - Vice Chancellor
Subjective
Date of Service: June 27, 2023:
Medications: Aspirin 81 mg a day, midodrine 5 mg 3 times daily, tamsulosin 0.4 mg a day, clopidogrel 75 mg a day, subcu heparin, Lantus, Augmentin, atorvastatin, metoprolol ER 25 a day, of fluconazole
PMH/PSH/SH/FH: Reviewed
Allergies none
Outpatient meds included cilostazol, metoprolol ER 12.5 a day, midodrine and tamsulosin
ROS negative except as above
116/66, pulse 103, respirate 31, afebrile, intake and output -1.3 L,
Chest x-ray infiltrates, probably pulmonary edema
ECG sinus tachycardia, PACs, nonspecific ST and T wave changes, left axis deviation, possible left atrial enlargement
Hemoglobin 10, white count 13.0, 133, potassium 3.6, CO2 21, anion gap is 10, BUN and creatinine are 12 and 0.7, troponin and proBNP are pending
Objective
Labs:
06/27/23 10:11
Labs
Hgb 10.0 g/dL (13.0-18.0) L 06/27/23 10:11
Hct 29.6 % (39.0-52.0) L 06/27/23 10:11
Plt Count 366 10^3/uL (130-400) 06/27/23 10:11
Sodium 133 mmol/L (135-145) L 06/26/23 03:27
Potassium 3.6 mmol/L (3.5-5.1) 06/26/23 03:27
BUN 12 mg/dl (9-20) 06/26/23 03:27
Creatinine 0.7 mg/dL (0.7-1.3) 06/26/23 03:27
Glucose 148 mg/dl (70-99) H 06/26/23 03:27
Vital Signs and I&O:
Vital Signs
Temp Pulse Resp BP Pulse Ox
37.2 C 103 31 116/66 88
06/27/23 07:28 06/27/23 08:36 06/27/23 06:00 06/27/23 08:36 06/27/23 06:00
Vital Signs
Temp Pulse Resp BP Pulse Ox
37.2 C 103 31 116/66 88
06/27/23 07:28 06/27/23 08:36 06/27/23 06:00 06/27/23 08:36 06/27/23 06:00
Intake & Output
06/25/23 06/26/23 06/27/23 06/28/23
07:59 07:59 07:59 07:59
Intake Total 3755 / 3755 450 / 450 180 / 180
Output Total 1974 / 1974 1000 / 1000 1500 / 1500
Balance 1780 / 1780 -550 / -550 -1320 / -1320
Physical Exam
Physical Exam
Frail, pleasant, confused, no acute distress
Head neck exam unremarkable
Crackles at left base cardiac regular rate and rhythm, JVD probably not dramatically elevated
Soft systolic murmur at base
Abdomen benign
Extremities without substantial edema
Neuro nonfocal, confused
[2023-06-27 10:46] LABS: Blood Urea Nitrogen 12 mg/dl (9-20); Calcium 8.1 mg/dl (8.4-10.2); Carbon Dioxide 24 mmol/L (22-30); Chloride 102 mmol/L (98-107); Estimated Creatinine Clearance 72 ml/min; Glucose 207 mg/dl (70-99); Magnesium 1.8 mg/dl (1.6-2.3); Potassium 3.1 mmol/L (3.5-5.1); Sodium 133 mmol/L (135-145); eGFR > 60.00
[2023-06-27 11:48] LABS: Glucose - Point of Care 197 mg/dl (70-99)
[2023-06-27] MEDS: MAGNESIUM SULFATE 102 GRAMS IV (12:49)
[2023-06-27 12:58] LABS: NT-proBNP 25000 pg/ml
[2023-06-27] MEDS: LASIX 40 MG IV (13:12)
[2023-06-27] MEDS: KCL 270 MEQ IV (14:05)
--- NOTE | 2023-06-27 14:35 | PTCARENOTE ---
Rec'd pt this AM. Able to titrate O2 to 4L NC. IV replacement of Mag and K infusing. Pt refusing all meals. Only able to take some meds PO in applesauce before refusing. Very poor PO intake. HR improved. BP stable. lethargic.
--- NOTE | 2023-06-27 16:32 | CM ---
Patient from [facility] with Hx Dementia, right AKA with Dx Sepsis due to UTI, Acute hypoxemic respiratory failure due to HF, colitis, RADHA. O2 4L midflow. Dysphagia diet. Seen by wound care nurse. PT Screen; No skilled PT needed. Per
nurse assessment; confused.
Plan contact patient's daughter Paula prior to return to SNF.
Plan return to [facility] when medically ready.
[2023-06-27 17:20] LABS: Glucose - Point of Care 259 mg/dl (70-99)
[2023-06-27] MEDS: FLORASTOR PO ×2 (17:42→17:46)
[2023-06-27] MEDS: ProAmatine PO ×2 (17:42→17:47)
[2023-06-27] MEDS: NOVOLOG FLEXPEN-LOW RESISTANCE SC ×2 (17:43→17:47)
--- NOTE | 2023-06-27 18:41 | PTCARENOTE ---
Pt refused all PO intake today after AM meds. Refused PO meds at HS as well as insulin.
--- NOTE | 2023-06-27 20:34 | PTCARENOTE ---
Received pt from randa RN. Pt is AAOx1 (self), confused/forgetful. Sinus tach w/PVCs on the monitor. On 4L midflow O2 sat 94%, lungs diminished/rhonchi. Incont of stool, poor appetite. Murry in place, care provided. Mouth care provided. Q2T
provided. Pt is laying comfortable in bed with call whitlock in reach.
[2023-06-27 21:40] LABS: Glucose - Point of Care 321 mg/dl (70-99)
[2023-06-27] MEDS: SENOKOT PO (22:16)
[2023-06-27] MEDS: NOVOLOG FLEXPEN 5 UNITS SC (22:27)
[2023-06-27] MEDS: LANTUS 0.100000000000000006 UNITS SC (22:27)
[2023-06-28] VITALS (13 sets, daily range): BP systolic 96–134; BP diastolic 58–82; BMI 21.0
[2023-06-28 04:05] LABS: Hemoglobin 9.6 g/dL (13.0-18.0); Mean Corp Hgb Conc. 34.3 g/dL (33.0-37.0); Mean Corpuscular Hgb 29.3 pg (27.0-31.0); Mean Corpuscular Volume 85.4 fL (80.0-94.0); Mean Platelet Volume 8.9 fL (7.4-10.4); Platelet Count 384 10^3/uL (130-400); Red Blood Cell Count 3.28 10^6/uL (4.70-6.10); Red Cell Dist. Width 17.2 % (11.5-14.5)
[2023-06-28 04:45] LABS: Blood Urea Nitrogen 13 mg/dl (9-20); Calcium 8.5 mg/dl (8.4-10.2); Carbon Dioxide 24 mmol/L (22-30); Chloride 101 mmol/L (98-107); Estimated Creatinine Clearance 71 ml/min; Glucose 168 mg/dl (70-99); Potassium 3.4 mmol/L (3.5-5.1); Sodium 137 mmol/L (135-145); eGFR > 60.00
[2023-06-28] MEDS: LOPRESSOR 5 MG IV ×2 (07:30→23:41)
[2023-06-28] MEDS: LIPITOR 20 MG PO (07:31)
[2023-06-28] MEDS: MUCINEX 600 MG PO (07:31)
[2023-06-28] MEDS: LOW STRENGTH ASPIRIN 81 MG PO (07:31)
[2023-06-28] MEDS: HEPARIN 5000 UNITS SC ×2 (07:31→20:39)
[2023-06-28] MEDS: FLOMAX 0.400000000000000022 MG PO (07:31)
[2023-06-28] MEDS: PLAVIX 75 MG PO (07:31)
--- NOTE | 2023-06-28 07:38 | W.PN.HOSP.TC ---
Today's Communication/Plan
-
see bold
Assessment / Plan
Assessment / Plan
Gen: NAD, Awake and alert, NCAT, appears chronically ill
Eyes: EOMI, PERRLA, no scleral icterus.
Neck: supple.
CV: RRR, +S1/S2, no m/r/g.
Resp: rales in the bases
Abd: +BS, soft, NT, ND
Skin: No rashes.
Neuro: continues to remain CN 2-12 intact, non-focal.
Psych: Normal mood and affect.
06/23/23 02:28 Blood/Venous Blood Culture - Final
No Growth - Final Report
06/23/23 02:28 Blood/Venous Blood Culture - Final
No Growth - Final Report
06/23/23 02:28 Urine Urine Culture - Final
Grecia albicans
06/23/23 02:44 Nasal Swab Influenza Types A & B (GLORIA) - Final
Negative for Influenza A & B, NAAT
Negative results must be combined with clinical observations
and patient history.
Nucleic Acid Amplification test (NAAT)performed on the
[employer] platform.
CT A/P:
1. � Severely limited examination without IV and oral contrast. Motion artifact limits the exam. Artifact from the patient's arms limits evaluation for subtle abnormality.
2. � Solid organs unchanged from previous CT 4.5 months ago.
3. � Large amount of stool throughout the colon consistent with constipation. Mild wall thickening of the distal rectosigmoid region, with an area of adjacent stranding and inflammation, differential includes diverticulosis with diverticulitis
versus stercoral colitis. There is fecal impaction in the rectum.
4. � Limited distention of the urinary bladder, there is a Murry catheter in place and the wall is diffusely thickened.
5. � No significant free fluid or free air. No fluid collection to suggest an abscess.
6. � Moderate hiatal hernia.
7. � Increased moderate bibasilar consolidation and small pleural effusions. Does the patient aspirate?
8. 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
9. � Atherosclerotic vascular disease. Not significantly changed from prior CT. Limited exam without IV contrast.
CT brain: There are no acute intracranial abnormalities. 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 There is moderate diffuse cortical atrophy with extensive nonspecific white matter changes.
Echo:
1.� Technically difficult study.� Echo contrast utilized.�
�2.� Normal left ventricular size with severely reduced left ventricular
�systolic function. Akinesis of the mid to apical inferoseptal, inferoseptal,
�inferolateral, anterolateral, anterior and inferior pino.� Mild concentric
�left ventricular hypertrophy.� Estimated left ventricular ejection fraction is
�20 to 25% by visual estimation.� Stage I diastolic dysfunction, suggestive of
�abnormal relaxation.
�3.� Normal right ventricular size and systolic function.
�4.� Mildly dilated left atrium.
�5.� Thickened mitral valve leaflets with mitral annular calcification.� Mild
�mitral regurgitation.
�6.� Calcified trileaflet aortic valve with thickened aortic valve leaflets with
�severely restricted leaflet motion.� Peak and mean transaortic gradients are 14
�and 9 mmHg, consistent with at least mild aortic stenosis.� Low stroke-volume
�index at 21ml/m2.� Mild aortic regurgitation.
�7.� Mild to moderate tricuspid regurgitation with estimated pulmonary artery
�systolic pressure 35 mmHg, assuming a right atrial pressure of 3 mmHg.
�8.� No pericardial effusion.
�9.� No evidence of left ventricular thrombus.
CXR:
1. Moderate pulmonary edema, slightly improved compared to prior chest x-ray.
2. Small bilateral pleural effusions are suspected. Consider PA and lateral views when possible.
Severe sepsis due to probable candidal UTI:
-s/p IVFs on admission
-ID following
-Leukocytosis resolved
-BCxs NG, UCx grecia
-cont Fluconazole through 07/06/23
-as per ID, no need for Uro to evaluate for SPT at this time. Can be addressed after discharge.
-cont Midodrine
Acute hypoxemic respiratory failure due to acute HFrEF:
-Echo above, EF 20-25%
-lasix 40mg IV given on 06/26/23 and 06/27/23, cont PO Lasix (also give 20mg IV Lasix now)
-cont Toprol XL 25mg daily
-was up to 12L midflow, now weaned down to 3L
-proBNP 25,000
-trop 3.210
Rectosigmoid stercoral colitis versus diverticulitis with fecal impaction:
-large BM on 06/24/23
-cont Miralax/senna
-completed a course of abx with Augmentin
RADHA (POA) due to severe sepsis:
-resolved with IVFs
Other problems:
Hypokalemia, PO K
Hypomagnesemia, s/p 2g IV Mg
Hyponatremia
DM2 with Diabetic neuropathy: cont Lantus/SSI/accuchecks
Severe PAD LLE: cont ASA/Plavix/statin/cilostazol
BPH: Continue tamsulosin
Chronic anemia: Holding iron supplement
Essential hypertension: cont metoprolol
DNR
Anticipated Discharge: > 48 hours
Subjective/Interval History
-
Date of Service: June 28, 2023
Denies CP/SOB.
Objective Data
-
Labs:
Laboratory Results
06/28/23
03:54
WBC 11.0 H
Hgb 9.6 L
Hct 28.0 L
Plt Count 384
Sodium 137
Potassium 3.4 L
Chloride 101
Carbon Dioxide 24
BUN 13
Creatinine 0.5 L
Glucose 168 H
Calcium 8.5
Vital Signs:
Vital Signs
Temp Pulse Resp BP Pulse Ox
97.8 F 97 24 116/71 93
06/28/23 03:00 06/28/23 06:00 06/28/23 06:00 06/28/23 06:00 06/28/23 06:00
I&O
06/27/23 06/28/23 06/29/23
06:59 06:59 06:59
Intake Total 280 / 280 100 / 100
Output Total 1500 / 1500 2100 / 2100
Balance -1220 / -1220 -1999 / -1999
--- NOTE | 2023-06-28 08:10 | PTCARENOTE ---
Received this am HR 150s-160 PRN IV Lopressor given Currently SR 88.
[2023-06-28 08:47] LABS: Glucose - Point of Care 149 mg/dl (70-99)
[2023-06-28] MEDS: NOVOLOG FLEXPEN-LOW RESISTANCE SC (09:13)
[2023-06-28] MEDS: KCL ELIXIR 40 MEQ PO (09:13)
[2023-06-28] MEDS: TOPROL XL 25 MG PO (09:14)
[2023-06-28] MEDS: FLORASTOR 250 MG PO ×2 (09:14→16:57)
[2023-06-28] MEDS: LASIX 20 MG IV (09:14)
[2023-06-28] MEDS: LASIX 20 MG PO (09:15)
[2023-06-28] MEDS: KCL PO (09:15)
[2023-06-28] MEDS: DIFLUCAN 200 MG PO (09:16)
[2023-06-28] MEDS: MAGNESIUM OXIDE 500 MG PO (09:16)
[2023-06-28] MEDS: ProAmatine 5 MG PO ×3 (09:17→16:57)
[2023-06-28] MEDS: MIRALAX PO (09:17)
[2023-06-28] MEDS: SENOKOT 17.1999999999999993 MG PO ×2 (09:17→20:39)
[2023-06-28 12:13] LABS: Glucose - Point of Care 213 mg/dl (70-99)
[2023-06-28] MEDS: NOVOLOG FLEXPEN-LOW RESISTANCE 2 UNITS SC ×2 (12:20→16:57)
--- NOTE | 2023-06-28 12:48 | W.PN.CARDCBS ---
Today's Communication / Plan
-
Continue Lasix 20 mg daily
Stable cardiology status at present although remains on oxygen
Continue Toprol for tachycardia which is improved
Unable to add meds for cardiomyopathy given hypotension requiring midodrine
Impression / Plan
-
PCP: Dr. Mcgowan
Cardiology: Unknown
Impression:
Candidal UTI/clinical sepsis
Acute hypoxic respiratory failure
Acute HFrEF
Aortic stenosis, at least mild but difficult to assess severity, may be low-flow state
Hypertension
HLD
IDDM
PAD
s/p R AKA
Dementia
Echo 06/26/2023: EF 20-25%, akinesis apical inferoseptum, inferoseptal, inferolateral, anterolateral, anterior and inferior pino, mild LVH, normal RV, dilated LA, mild MR, at least mild aortic stenosis, peak gradient 14, could be low-flow, mild
aortic regurgitation, mild to moderate TR, pulmonary artery pressure 35 mmHg
Plan:
His volume status is difficult to ascertain
We will continue low-dose Lasix 20 mg p.o. daily
Of note patient had renal insufficiency which resolved
Difficult to add meds for cardiomyopathy given hypotension requiring midodrine
Continue low-dose Toprol for tachycardia which was likely atrial tachycardia
Treatment of Grecia UTI per primary service and ID.
HPI: Ajit is an 87-year-old male with past medical history of hypertension, hyperlipidemia, insulin-dependent diabetes, PAD status post right AKA, dementia who presented to ER for evaluation of increased confusion and lethargy. [facility]
staff where he resides noticed that he had been more lethargic and there was concern for urinary tract infection as he has chronic indwelling catheter. On arrival to the emergency room, he was noted to have sepsis due to complicated UTI with
hypotension. He was started on fluconazole as urine culture grew Grecia. Blood cultures were negative. Outpatient blood pressure medicines were held. He was also started on midodrine and given IV fluids. Overnight 06/25/2013 to 06/26/2023, he
was noted to have increased oxygen requirements, up to 12 L mid flow. Chest x-ray was repeated and showed pulmonary edema. He was given a dose of IV Lasix this AM and has been diuresing well with 400 cc of urine output already noted. He denies
any complaints including shortness of breath, chest pain, dizziness, or lightheadedness. No edema noted on left lower extremity. Cardiology consulted given concern for possible heart failure.
Progress Note - Ux Researcher
Subjective
Date of Service: June 28, 2023
No complaints
Objective
Labs:
06/28/23 03:54
06/28/23 03:54
Labs
Hgb 9.6 g/dL (13.0-18.0) L 06/28/23 03:54
Hct 28.0 % (39.0-52.0) L 06/28/23 03:54
Plt Count 384 10^3/uL (130-400) 06/28/23 03:54
Sodium 137 mmol/L (135-145) 06/28/23 03:54
Potassium 3.4 mmol/L (3.5-5.1) L 06/28/23 03:54
BUN 13 mg/dl (9-20) 06/28/23 03:54
Creatinine 0.5 mg/dL (0.7-1.3) L 06/28/23 03:54
Glucose 168 mg/dl (70-99) H 06/28/23 03:54
Troponins
06/27/23 06/28/23
12:13 09:39
Troponin I 3.210 H* 2.250 H*
Vital Signs and I&O:
Vital Signs
Temp Pulse Resp BP Pulse Ox
98.2 F 97 24 116/71 93
06/28/23 11:08 06/28/23 06:00 06/28/23 06:00 06/28/23 06:00 06/28/23 06:00
Vital Signs
Temp Pulse Resp BP Pulse Ox
98.2 F 97 24 116/71 93
06/28/23 11:08 06/28/23 06:00 06/28/23 06:00 06/28/23 06:00 06/28/23 06:00
Intake & Output
06/26/23 06/27/23 06/28/23 06/29/23
06:59 06:59 06:59 06:59
Intake Total 350 / 350 280 / 280 100 / 100
Output Total 1000 / 1000 1500 / 1500 2100 / 2100
Balance -650 / -650 -1220 / -1220 -2000 / -1999
Physical Exam
Physical Exam
General: Awake but confused ?
Neck: Supple, no JVD, HJR, carotids +2 B/L, no bruits bilaterally.
Heart: Non displaced PMI, RRR, no murmurs, No S3, S4, no rubs.
Lungs: Scattered rhonchi
Extremities: No clubbing, cyanosis or edema bilaterally.
Neuro: Awake but confused ?
[2023-06-28] MEDS: TYLENOL 650 MG PO (13:40)
[2023-06-28 16:57] LABS: Glucose - Point of Care 234 mg/dl (70-99)
--- NOTE | 2023-06-28 20:00 | PTCARENOTE ---
Confused but appropriate at times. Complained of back pain this pm and received po Tylenol x1 good relief. O2 at 3L NC. No further episodes of SVT today. Eating 10-25% of meals. Chronic soria 1250 output. Incontinent of bowel x2 today.
Turning q 2.
[2023-06-28] MEDS: MUCINEX PO ×2 (20:39→20:49)
[2023-06-28] MEDS: MIRALAX 17 GRAMS PO (20:40)
[2023-06-28] MEDS: LANTUS 0.100000000000000006 UNITS SC (21:58)
[2023-06-28 22:01] LABS: Glucose - Point of Care 243 mg/dl (70-99)
[2023-06-29] VITALS (13 sets, daily range): BP systolic 99–134; BP diastolic 55–77; BMI 20.2
--- NOTE | 2023-06-29 00:30 | PTCARENOTE ---
Received Pt from Day RN. PT AAO to self. Pt appeared to be resting comfortably in bed. Pt ST with PAC's. Pt became tachycardic in the 150-160 PRN Lopressor given. Pt HR coming down to 140. Pt Asymptomatic no feeling of fast HR or heaviness.
Assessment care and vitals as charted.
[2023-06-29] MEDS: LOPRESSOR 2.5 MG IV (03:04)
--- NOTE | 2023-06-29 03:11 | PTCARENOTE ---
PT hr maintaining at 155- 160 after PRN Lopressor. Night [employer] made aware, additional 2.5 Lopressor ordered and affective. Pt HR now in 110-120's BP 113/69 MAP 81 See MAR.
[2023-06-29 05:08] LABS: Hematocrit 27.9 % (39.0-52.0); Hemoglobin 9.3 g/dL (13.0-18.0); Mean Corp Hgb Conc. 33.3 g/dL (33.0-37.0); Mean Corpuscular Hgb 29.3 pg (27.0-31.0); Mean Platelet Volume 8.7 fL (7.4-10.4); Platelet Count 419 10^3/uL (130-400); Red Blood Cell Count 3.17 10^6/uL (4.70-6.10); Red Cell Dist. Width 17.8 % (11.5-14.5); White Blood Cell Count 11.4 10^3/uL (4.8-10.8)
[2023-06-29 05:36] LABS: Blood Urea Nitrogen 17 mg/dl (9-20); Calcium 8.5 mg/dl (8.4-10.2); Carbon Dioxide 30 mmol/L (22-30); Chloride 101 mmol/L (98-107); Estimated Creatinine Clearance 68 ml/min; Glucose 185 mg/dl (70-99); Potassium 3.3 mmol/L (3.5-5.1); Sodium 137 mmol/L (135-145); eGFR > 60.00
--- NOTE | 2023-06-29 07:59 | W.PN.HOSP.TC ---
Today's Communication/Plan
-
see bold
Assessment / Plan
Assessment / Plan
Gen: NAD, Awake and alert, NCAT, appears chronically ill
Eyes: EOMI, PERRLA, no scleral icterus.
Neck: supple.
CV: remains RRR, +S1/S2, no m/r/g.
Resp: CTAB anteriorly
Abd: remains +BS, soft, NT, ND
Skin: No rashes.
Neuro: CN 2-12 intact, non-focal.
Psych: Normal mood and affect.
06/23/23 02:28 Blood/Venous Blood Culture - Final
No Growth - Final Report
06/23/23 02:28 Blood/Venous Blood Culture - Final
No Growth - Final Report
06/23/23 02:28 Urine Urine Culture - Final
Grecia albicans
06/23/23 02:44 Nasal Swab Influenza Types A & B (GLORIA) - Final
Negative for Influenza A & B, NAAT
Negative results must be combined with clinical observations
and patient history.
Nucleic Acid Amplification test (NAAT)performed on the
[employer] NOW platform.
CT A/P:
1. � Severely limited examination without IV and oral contrast. Motion artifact limits the exam. Artifact from the patient's arms limits evaluation for subtle abnormality.
2. � Solid organs unchanged from previous CT 4.5 months ago.
3. � Large amount of stool throughout the colon consistent with constipation. Mild wall thickening of the distal rectosigmoid region, with an area of adjacent stranding and inflammation, differential includes diverticulosis with diverticulitis
versus stercoral colitis. There is fecal impaction in the rectum.
4. � Limited distention of the urinary bladder, there is a Murry catheter in place and the wall is diffusely thickened.
5. � No significant free fluid or free air. No fluid collection to suggest an abscess.
6. � Moderate hiatal hernia.
7. � Increased moderate bibasilar consolidation and small pleural effusions. Does the patient aspirate?
8. 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
9. � Atherosclerotic vascular disease. Not significantly changed from prior CT. Limited exam without IV contrast.
CT brain: There are no acute intracranial abnormalities. 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 There is moderate diffuse cortical atrophy with extensive nonspecific white matter changes.
Echo:
1.� Technically difficult study.� Echo contrast utilized.�
�2.� Normal left ventricular size with severely reduced left ventricular
�systolic function. Akinesis of the mid to apical inferoseptal, inferoseptal,
�inferolateral, anterolateral, anterior and inferior pino.� Mild concentric
�left ventricular hypertrophy.� Estimated left ventricular ejection fraction is
�20 to 25% by visual estimation.� Stage I diastolic dysfunction, suggestive of
�abnormal relaxation.
�3.� Normal right ventricular size and systolic function.
�4.� Mildly dilated left atrium.
�5.� Thickened mitral valve leaflets with mitral annular calcification.� Mild
�mitral regurgitation.
�6.� Calcified trileaflet aortic valve with thickened aortic valve leaflets with
�severely restricted leaflet motion.� Peak and mean transaortic gradients are 14
�and 9 mmHg, consistent with at least mild aortic stenosis.� Low stroke-volume
�index at 21ml/m2.� Mild aortic regurgitation.
�7.� Mild to moderate tricuspid regurgitation with estimated pulmonary artery
�systolic pressure 35 mmHg, assuming a right atrial pressure of 3 mmHg.
�8.� No pericardial effusion.
�9.� No evidence of left ventricular thrombus.
CXR:
1. Moderate pulmonary edema, slightly improved compared to prior chest x-ray.
2. Small bilateral pleural effusions are suspected. Consider PA and lateral views when possible.
Severe sepsis due to probable candidal UTI:
-s/p IVFs on admission
-ID following
-Leukocytosis resolved
-BCxs NG, UCx grecia
-cont Fluconazole through 07/06/23
-as per ID, no need for Uro to evaluate for SPT at this time. Can be addressed after discharge.
-cont Midodrine
Acute hypoxemic respiratory failure due to acute HFrEF:
-Echo above, EF 20-25%
-proBNP 25,000
-trop 3.210, 2.250
-s/p doses of IV Lasix, now on PO lasix
-cont Toprol XL 25mg daily
-was up to 12L midflow, now weaned down to 4L
-cardiology following
Rectosigmoid stercoral colitis versus diverticulitis with fecal impaction:
-large BM on 06/24/23
-cont Miralax/senna
-completed a course of abx with Augmentin
RADHA (POA) due to severe sepsis:
-resolved with IVFs
Other problems:
Hypokalemia, PO K
Hypomagnesemia, s/p 2g IV Mg
Hyponatremia
DM2 with Diabetic neuropathy: cont Lantus/SSI/accuchecks
Severe PAD LLE: cont ASA/Plavix/statin/cilostazol
BPH: Continue tamsulosin
Chronic anemia: Holding iron supplement
Essential hypertension: cont metoprolol
DNR
Anticipated Discharge: > 48 hours
Subjective/Interval History
-
Date of Service: June 29, 2023
Denies SOB.
Objective Data
-
Labs:
Laboratory Results
06/29/23
04:58
WBC 11.4 H
Hgb 9.3 L
Hct 27.9 L
Plt Count 419 H
Sodium 137
Potassium 3.3 L
Chloride 101
Carbon Dioxide 30
BUN 17
Creatinine 0.5 L
Glucose 185 H
Calcium 8.5
Vital Signs:
Vital Signs
Temp Pulse Resp BP Pulse Ox
97.7 F 89 20 115/62 95
06/29/23 03:55 06/29/23 06:00 06/29/23 06:00 06/29/23 06:00 06/29/23 06:00
I&O
06/28/23 06/29/23 06/30/23
06:59 06:59 06:59
Intake Total 100 / 100 760 / 760
Output Total 2099 / 2099 1650 / 1650
Balance -1999 / -1999 -890 / -890
[2023-06-29 08:46] LABS: Glucose - Point of Care 153 mg/dl (70-99)
[2023-06-29] MEDS: KCL ELIXIR 40 MEQ PO ×2 (08:48)
[2023-06-29] MEDS: PLAVIX 75 MG PO (08:53)
[2023-06-29] MEDS: ProAmatine 5 MG PO ×3 (08:53→17:45)
[2023-06-29] MEDS: MIRALAX 17 GRAMS PO (08:53)
[2023-06-29] MEDS: MUCINEX 600 MG PO (08:53)
[2023-06-29] MEDS: FLOMAX 0.400000000000000022 MG PO (08:53)
[2023-06-29] MEDS: TOPROL XL 25 MG PO (08:53)
[2023-06-29] MEDS: FLORASTOR 250 MG PO ×2 (08:53→17:46)
[2023-06-29] MEDS: MAGNESIUM OXIDE 500 MG PO (08:53)
[2023-06-29] MEDS: SENOKOT 17.1999999999999993 MG PO (08:54)
[2023-06-29] MEDS: LOW STRENGTH ASPIRIN 81 MG PO (08:54)
[2023-06-29] MEDS: HEPARIN 5000 UNITS SC ×2 (08:54→20:39)
[2023-06-29] MEDS: LIPITOR 20 MG PO (08:54)
[2023-06-29] MEDS: DIFLUCAN 200 MG PO (08:54)
[2023-06-29] MEDS: NOVOLOG FLEXPEN-LOW RESISTANCE 1 UNITS SC ×3 (08:55→17:45)
[2023-06-29] MEDS: KCL PO (10:27)
[2023-06-29] MEDS: LASIX 20 MG PO (10:27)
--- NOTE | 2023-06-29 10:39 | W.PN.CARDCBS ---
Today's Communication / Plan
-
Stable cardiology status
Sign off
Impression / Plan
-
PCP: Dr. Mcgowan
Cardiology: Unknown
Impression:
Candidal UTI/clinical sepsis
Acute hypoxic respiratory failure
Acute HFrEF
Aortic stenosis, at least mild but difficult to assess severity, may be low-flow state
Hypertension
HLD
IDDM
PAD
s/p R AKA
Dementia
Echo 06/26/2023: EF 20-25%, akinesis apical inferoseptum, inferoseptal, inferolateral, anterolateral, anterior and inferior pino, mild LVH, normal RV, dilated LA, mild MR, at least mild aortic stenosis, peak gradient 14, could be low-flow, mild
aortic regurgitation, mild to moderate TR, pulmonary artery pressure 35 mmHg
Plan:
Volume status appears reasonable on oral Lasix
He remains on oxygen which may be multifactorial and may need oxygen at the facility
Difficult to add meds for cardiomyopathy given hypotension requiring midodrine
Continue low-dose Toprol for tachycardia which was likely atrial tachycardia
Treatment of Grecia UTI per primary service and ID.
Will sign off, call with questions
HPI: Ajit is an 87-year-old male with past medical history of hypertension, hyperlipidemia, insulin-dependent diabetes, PAD status post right AKA, dementia who presented to ER for evaluation of increased confusion and lethargy. correction
staff where he resides noticed that he had been more lethargic and there was concern for urinary tract infection as he has chronic indwelling catheter. On arrival to the emergency room, he was noted to have sepsis due to complicated UTI with
hypotension. He was started on fluconazole as urine culture grew Grecia. Blood cultures were negative. Outpatient blood pressure medicines were held. He was also started on midodrine and given IV fluids. Overnight 06/25/2013 to 06/26/2023, he
was noted to have increased oxygen requirements, up to 12 L mid flow. Chest x-ray was repeated and showed pulmonary edema. He was given a dose of IV Lasix this AM and has been diuresing well with 400 cc of urine output already noted. He denies
any complaints including shortness of breath, chest pain, dizziness, or lightheadedness. No edema noted on left lower extremity. Cardiology consulted given concern for possible heart failure.
Progress Note - [employer]
Subjective
Date of Service: June 29, 2023
No complaints but appears confused
Objective
Labs:
06/29/23 04:58
06/29/23 04:58
Labs
Hgb 9.3 g/dL (13.0-18.0) L 06/29/23 04:58
Hct 27.9 % (39.0-52.0) L 06/29/23 04:58
Plt Count 419 10^3/uL (130-400) H 06/29/23 04:58
Sodium 137 mmol/L (135-145) 06/29/23 04:58
Potassium 3.3 mmol/L (3.5-5.1) L 06/29/23 04:58
BUN 17 mg/dl (9-20) 06/29/23 04:58
Creatinine 0.5 mg/dL (0.7-1.3) L 06/29/23 04:58
Glucose 185 mg/dl (70-99) H 06/29/23 04:58
Troponins
06/27/23 06/28/23
12:13 09:39
Troponin I 3.210 H* 2.250 H*
Vital Signs and I&O:
Vital Signs
Temp Pulse Resp BP Pulse Ox
97.5 F 97 23 127/70 98
06/29/23 08:20 06/29/23 10:00 06/29/23 10:00 06/29/23 10:00 06/29/23 10:00
Vital Signs
Temp Pulse Resp BP Pulse Ox
97.5 F 97 23 127/70 98
06/29/23 08:20 06/29/23 10:00 06/29/23 10:00 06/29/23 10:00 06/29/23 10:00
Intake & Output
06/27/23 06/28/23 06/29/23 06/30/23
06:59 06:59 06:59 06:59
Intake Total 280 / 280 100 / 100 760 / 760
Output Total 1500 / 1500 2100 / 2100 1650 / 1650
Balance -1220 / -1220 -2000 / -2000 -890 / -890
Physical Exam
Physical Exam
General: Awake but confused
Neck: Supple, no JVD, HJR, carotids +2 B/L, no bruits bilaterally.
Heart: Non displaced PMI, RRR, no murmurs, No S3, S4, no rubs.
Lungs: Scattered rhonchi
Extremities: No clubbing, cyanosis or edema bilaterally.
Neuro: Awake but confused
[2023-06-29] MEDS: TYLENOL 650 MG PO ×2 (11:53→18:08)
[2023-06-29 12:08] LABS: Glucose - Point of Care 195 mg/dl (70-99)
[2023-06-29 17:55] LABS: Glucose - Point of Care 195 mg/dl (70-99)
--- NOTE | 2023-06-29 17:58 | PTCARENOTE ---
Patient has poor appetite. He says he is hungry but does not like the pureed diet and thickened liquids. Patient complains of left foot pain. Medicated with tylenol and repositiopned for comfort. Patient is forgetful. Vital signs stable. 3l o2
spo2 mid 90's.
[2023-06-29] MEDS: MUCINEX PO (21:18)
[2023-06-29] MEDS: MIRALAX PO (21:18)
[2023-06-29] MEDS: SENOKOT PO (21:19)
[2023-06-29] MEDS: ULTRAM 50 MG PO (22:07)
[2023-06-29] MEDS: LANTUS 0.100000000000000006 UNITS SC (23:09)
[2023-06-29 23:20] LABS: Glucose - Point of Care 190 mg/dl (70-99)
[2023-06-30] VITALS (13 sets, daily range): BP systolic 79–132; BP diastolic 48–102; BMI 20.1
--- NOTE | 2023-06-30 01:52 | PTCARENOTE ---
Pt complaints of pain7/10 in right aka and left leg/foot. Repositioning done and Tylenol given with no relief. Night [employer] notified, one time tramadol given. Reassessment Pt pain now at a 4. Pt uncooperative this shift. Pt refusing mouth care, only
swabs done. Pt refusing and getting up set at turning and hygiene. Emotional support given and education for all.
[2023-06-30 04:55] LABS: Hematocrit 28.9 % (39.0-52.0); Hemoglobin 9.3 g/dL (13.0-18.0); Mean Corp Hgb Conc. 32.2 g/dL (33.0-37.0); Mean Corpuscular Hgb 29.1 pg (27.0-31.0); Mean Corpuscular Volume 90.3 fL (80.0-94.0); Mean Platelet Volume 8.7 fL (7.4-10.4); Platelet Count 420 10^3/uL (130-400); Red Cell Dist. Width 17.9 % (11.5-14.5); White Blood Cell Count 9.4 10^3/uL (4.8-10.8)
[2023-06-30 05:17] LABS: Blood Urea Nitrogen 12 mg/dl (9-20); Calcium 8.7 mg/dl (8.4-10.2); Carbon Dioxide 30 mmol/L (22-30); Chloride 106 mmol/L (98-107); Estimated Creatinine Clearance 68 ml/min; Glucose 147 mg/dl (70-99); Sodium 138 mmol/L (135-145); eGFR > 60.00
[2023-06-30] MEDS: LOPRESSOR 5 MG IV (07:18)
[2023-06-30 07:52] LABS: Glucose - Point of Care 156 mg/dl (70-99)
--- NOTE | 2023-06-30 07:58 | PTCARENOTE ---
Tele alarming St-SVT rates up to 160- PRN IV Lopressor given - rates down to 90s-110. Strips on chart.
--- NOTE | 2023-06-30 07:58 | W.PN.HOSP.TC ---
Today's Communication/Plan
-
see bold
Assessment / Plan
Assessment / Plan
Gen: NAD, Awake and alert, NCAT, appears chronically ill
Eyes: EOMI, PERRLA, no scleral icterus.
Neck: supple.
CV: tachy, reg rhythm, +S1/S2, no m/r/g.
Resp: CTAB anteriorly
Abd: remains +BS, soft, NT, ND
Skin: No rashes.
Neuro: CN 2-12 intact, non-focal.
Psych: Normal mood and affect.
06/23/23 02:28 Blood/Venous Blood Culture - Final
No Growth - Final Report
06/23/23 02:28 Blood/Venous Blood Culture - Final
No Growth - Final Report
06/23/23 02:28 Urine Urine Culture - Final
Grecia albicans
06/23/23 02:44 Nasal Swab Influenza Types A & B (GLORIA) - Final
Negative for Influenza A & B, NAAT
Negative results must be combined with clinical observations
and patient history.
Nucleic Acid Amplification test (NAAT)performed on the
[employer] NOW platform.
CT A/P:
1. � Severely limited examination without IV and oral contrast. Motion artifact limits the exam. Artifact from the patient's arms limits evaluation for subtle abnormality.
2. � Solid organs unchanged from previous CT 4.5 months ago.
3. � Large amount of stool throughout the colon consistent with constipation. Mild wall thickening of the distal rectosigmoid region, with an area of adjacent stranding and inflammation, differential includes diverticulosis with diverticulitis
versus stercoral colitis. There is fecal impaction in the rectum.
4. � Limited distention of the urinary bladder, there is a Murry catheter in place and the wall is diffusely thickened.
5. � No significant free fluid or free air. No fluid collection to suggest an abscess.
6. � Moderate hiatal hernia.
7. � Increased moderate bibasilar consolidation and small pleural effusions. Does the patient aspirate?
8. 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
9. � Atherosclerotic vascular disease. Not significantly changed from prior CT. Limited exam without IV contrast.
CT brain: There are no acute intracranial abnormalities. 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 There is moderate diffuse cortical atrophy with extensive nonspecific white matter changes.
Echo:
1.� Technically difficult study.� Echo contrast utilized.�
�2.� Normal left ventricular size with severely reduced left ventricular
�systolic function. Akinesis of the mid to apical inferoseptal, inferoseptal,
�inferolateral, anterolateral, anterior and inferior pino.� Mild concentric
�left ventricular hypertrophy.� Estimated left ventricular ejection fraction is
�20 to 25% by visual estimation.� Stage I diastolic dysfunction, suggestive of
�abnormal relaxation.
�3.� Normal right ventricular size and systolic function.
�4.� Mildly dilated left atrium.
�5.� Thickened mitral valve leaflets with mitral annular calcification.� Mild
�mitral regurgitation.
�6.� Calcified trileaflet aortic valve with thickened aortic valve leaflets with
�severely restricted leaflet motion.� Peak and mean transaortic gradients are 14
�and 9 mmHg, consistent with at least mild aortic stenosis.� Low stroke-volume
�index at 21ml/m2.� Mild aortic regurgitation.
�7.� Mild to moderate tricuspid regurgitation with estimated pulmonary artery
�systolic pressure 35 mmHg, assuming a right atrial pressure of 3 mmHg.
�8.� No pericardial effusion.
�9.� No evidence of left ventricular thrombus.
CXR 06/26/23:
1. Moderate pulmonary edema, slightly improved compared to prior chest x-ray.
2. Small bilateral pleural effusions are suspected. Consider PA and lateral views when possible.
Severe sepsis due to probable candidal UTI:
-s/p IVFs on admission
-ID following
-Leukocytosis resolved
-BCxs NG, UCx grecia
-cont Fluconazole through 07/06/23
-as per ID, no need for Uro to evaluate for SPT at this time. Can be addressed after discharge.
-cont Midodrine
Acute hypoxemic respiratory failure due to acute HFrEF:
-Echo above, EF 20-25%
-proBNP 25,000
-trop 3.210, 2.250
-s/p doses of IV Lasix, now on PO lasix
-cont Toprol XL but increase to 50mg daily for tachycardia
-was up to 12L midflow, now weaned down to 3L. Will likely need O2 on d/c.
-cardiology will see again today for tachycardia (discussed with Dr. Fofana)
Rectosigmoid stercoral colitis versus diverticulitis with fecal impaction:
-large BM on 06/24/23
-cont Miralax/senna
-completed a course of abx with Augmentin
RADHA (POA) due to severe sepsis:
-resolved with IVFs
Other problems:
Hypokalemia, resolved
Hypomagnesemia, s/p 2g IV Mg
Hyponatremia
DM2 with Diabetic neuropathy: cont Lantus/SSI/accuchecks
Severe PAD LLE: cont ASA/Plavix/statin/cilostazol
BPH: Continue tamsulosin
Chronic anemia: Holding iron supplement
Essential hypertension: cont metoprolol
DNR
Anticipated Discharge: 24 - 48 hours
Subjective/Interval History
-
Date of Service: June 30, 2023
No new complaints.
Objective Data
-
Labs:
Laboratory Results
06/30/23
04:38
WBC 9.4
Hgb 9.3 L
Hct 28.9 L
Plt Count 420 H
Sodium 138
Potassium 4.0
Chloride 106
Carbon Dioxide 30
BUN 12
Creatinine 0.6 L
Glucose 147 H
Calcium 8.7
Vital Signs:
Vital Signs
Temp Pulse Resp BP Pulse Ox
97.8 F 150 9 117/82 99
06/30/23 03:25 06/30/23 07:15 06/30/23 07:15 06/30/23 07:15 06/30/23 04:00
I&O
06/29/23 06/30/23 07/01/23
06:59 06:59 06:59
Intake Total 760 / 760 885 / 885
Output Total 1650 / 1650 750 / 750
Balance -890 / -890 135 / 135
[2023-06-30] MEDS: LOW STRENGTH ASPIRIN 81 MG PO (08:50)
[2023-06-30] MEDS: MAGNESIUM OXIDE 500 MG PO (08:50)
[2023-06-30] MEDS: LASIX 20 MG PO (08:50)
[2023-06-30] MEDS: SENOKOT 17.1999999999999993 MG PO ×2 (08:50→20:30)
[2023-06-30] MEDS: DIFLUCAN 200 MG PO (08:51)
[2023-06-30] MEDS: LIPITOR 20 MG PO (08:51)
[2023-06-30] MEDS: MUCINEX 600 MG PO (08:51)
[2023-06-30] MEDS: PLAVIX 75 MG PO (08:51)
[2023-06-30] MEDS: FLOMAX 0.400000000000000022 MG PO (08:51)
[2023-06-30] MEDS: ProAmatine 5 MG PO ×3 (08:51→17:33)
[2023-06-30] MEDS: NOVOLOG FLEXPEN-LOW RESISTANCE 1 UNITS SC ×2 (08:52→18:11)
[2023-06-30] MEDS: KCL 20 MEQ PO (08:52)
[2023-06-30] MEDS: HEPARIN 5000 UNITS SC ×2 (08:52→20:31)
[2023-06-30] MEDS: MIRALAX PO ×2 (08:53→20:31)
[2023-06-30] MEDS: FLORASTOR 250 MG PO ×2 (09:04→17:33)
[2023-06-30] MEDS: TOPROL XL PO (09:22)
[2023-06-30] MEDS: ROBITUSSIN 600 MG PO ×2 (09:37→20:30)
[2023-06-30] MEDS: LOPRESSOR 50 MG PO ×2 (09:37→20:30)
[2023-06-30] MEDS: NOVOLOG FLEXPEN-LOW RESISTANCE 2 UNITS SC (13:03)
[2023-06-30 13:14] LABS: Glucose - Point of Care 243 mg/dl (70-99)
--- NOTE | 2023-06-30 14:07 | W.PN.CARDCBS ---
Today's Communication / Plan
-
Episodes of atrial tachycardia
Increase Lopressor but may need to add amiodarone if blood pressure does not tolerate
Discussed with primary service
Impression / Plan
-
PCP: Dr. Mcgowan
Cardiology: Unknown
Impression:
Candidal UTI/clinical sepsis
Acute hypoxic respiratory failure
Acute HFrEF
Atrial tachycardia
Aortic stenosis, at least mild but difficult to assess severity, may be low-flow state
Hypertension
HLD
IDDM
PAD
s/p R AKA
Dementia
Echo 06/26/2023: EF 20-25%, akinesis apical inferoseptum, inferoseptal, inferolateral, anterolateral, anterior and inferior pino, mild LVH, normal RV, dilated LA, mild MR, at least mild aortic stenosis, peak gradient 14, could be low-flow, mild
aortic regurgitation, mild to moderate TR, pulmonary artery pressure 35 mmHg
Plan:
He is having episodes of atrial tachycardia
We will increase beta-africa but may need to add amiodarone as blood pressure might not tolerate higher doses
Difficult to add meds for cardiomyopathy given hypotension requiring midodrine
Treatment of Grecia UTI per primary service and ID.
HPI: Ajit is an 87-year-old male with past medical history of hypertension, hyperlipidemia, insulin-dependent diabetes, PAD status post right AKA, dementia who presented to ER for evaluation of increased confusion and lethargy. shelter
staff where he resides noticed that he had been more lethargic and there was concern for urinary tract infection as he has chronic indwelling catheter. On arrival to the emergency room, he was noted to have sepsis due to complicated UTI with
hypotension. He was started on fluconazole as urine culture grew Grecia. Blood cultures were negative. Outpatient blood pressure medicines were held. He was also started on midodrine and given IV fluids. Overnight 06/25/2013 to 06/26/2023, he
was noted to have increased oxygen requirements, up to 12 L mid flow. Chest x-ray was repeated and showed pulmonary edema. He was given a dose of IV Lasix this AM and has been diuresing well with 400 cc of urine output already noted. He denies
any complaints including shortness of breath, chest pain, dizziness, or lightheadedness. No edema noted on left lower extremity. Cardiology consulted given concern for possible heart failure.
Progress Note - [place]
Subjective
Date of Service: June 30, 2023
He is without complaints at present. Telemetry with episodes of atrial tachycardia
Objective
Labs:
06/30/23 04:38
06/30/23 04:38
Labs
Hgb 9.3 g/dL (13.0-18.0) L 06/30/23 04:38
Hct 28.9 % (39.0-52.0) L 06/30/23 04:38
Plt Count 420 10^3/uL (130-400) H 06/30/23 04:38
Sodium 138 mmol/L (135-145) 06/30/23 04:38
Potassium 4.0 mmol/L (3.5-5.1) 06/30/23 04:38
BUN 12 mg/dl (9-20) 06/30/23 04:38
Creatinine 0.6 mg/dL (0.7-1.3) L 06/30/23 04:38
Glucose 147 mg/dl (70-99) H 06/30/23 04:38
Troponins
06/28/23
09:39
Troponin I 2.250 H*
Vital Signs and I&O:
Vital Signs
Temp Pulse Resp BP Pulse Ox
97.6 F 151 11 104/78 93
06/30/23 11:20 06/30/23 10:00 06/30/23 10:00 06/30/23 10:00 06/30/23 08:00
Vital Signs
Temp Pulse Resp BP Pulse Ox
97.6 F 151 11 104/78 93
06/30/23 11:20 06/30/23 10:00 06/30/23 10:00 06/30/23 10:00 06/30/23 08:00
Intake & Output
06/28/23 06/29/23 06/30/23 07/01/23
06:59 06:59 06:59 06:59
Intake Total 100 / 100 760 / 760 885 / 885
Output Total 2100 / 2100 1650 / 1650 750 / 750
Balance -2000 / -2000 -890 / -890 135 / 135
Physical Exam
Physical Exam
General: Well developed, well nourished in NAD.
Neck: Supple, no JVD, HJR, carotids +2 B/L, no bruits bilaterally.
Heart: Non displaced PMI, regular, tachycardic, no murmurs, No S3, S4, no rubs.
Lungs: Scattered rhonchi
Extremities: No clubbing, cyanosis or edema bilaterally.
Neuro: Grossly nonfocal, awake, alert and oriented x3.
[2023-06-30] MEDS: TYLENOL 650 MG PO (18:08)
[2023-06-30 18:15] LABS: Glucose - Point of Care 150 mg/dl (70-99)
--- NOTE | 2023-06-30 20:01 | PTCARENOTE ---
Received pt from dayshift RN. Pt is AAOx1 (self), forgetful, confused, anxious. NSR on the monitor. Received pt on 2L, weaned to RA, O2 sat 93%, lungs diminished/crackles. Loose BM. Murry in place, care provided. Q2T provided. Pt is laying
comfortable in bed with call [place] in reach.
[2023-06-30 21:16] LABS: Glucose - Point of Care 285 mg/dl (70-99)
[2023-06-30] MEDS: LANTUS 0.100000000000000006 UNITS SC (22:29)
[2023-07-01] VITALS (12 sets, daily range): BP systolic 103–138; BP diastolic 53–78; BMI 20.2
[2023-07-01] MEDS: TYLENOL 650 MG PO ×2 (04:08→21:12)
[2023-07-01 04:46] LABS: Hematocrit 29.1 % (39.0-52.0); Hemoglobin 9.5 g/dL (13.0-18.0); Mean Corp Hgb Conc. 32.6 g/dL (33.0-37.0); Mean Corpuscular Hgb 29.3 pg (27.0-31.0); Mean Corpuscular Volume 89.8 fL (80.0-94.0); Mean Platelet Volume 9.1 fL (7.4-10.4); Platelet Count 442 10^3/uL (130-400); Red Blood Cell Count 3.24 10^6/uL (4.70-6.10); Red Cell Dist. Width 17.8 % (11.5-14.5)
[2023-07-01 05:10] LABS: Blood Urea Nitrogen 16 mg/dl (9-20); Calcium 8.9 mg/dl (8.4-10.2); Carbon Dioxide 26 mmol/L (22-30); Chloride 102 mmol/L (98-107); Estimated Creatinine Clearance 68 ml/min; Glucose 179 mg/dl (70-99); Potassium 4.1 mmol/L (3.5-5.1); Sodium 138 mmol/L (135-145); eGFR > 60.00
[2023-07-01 07:18] LABS: Glucose - Point of Care 193 mg/dl (70-99)
[2023-07-01] MEDS: LASIX 20 MG PO (08:30)
[2023-07-01] MEDS: KCL 20 MEQ PO (08:30)
[2023-07-01] MEDS: LOPRESSOR 50 MG PO ×2 (08:30→20:57)
[2023-07-01] MEDS: SENOKOT 17.1999999999999993 MG PO (08:30)
[2023-07-01] MEDS: FLORASTOR 250 MG PO (08:30)
[2023-07-01] MEDS: FLOMAX 0.400000000000000022 MG PO (08:30)
[2023-07-01] MEDS: MAGNESIUM OXIDE 500 MG PO (08:30)
[2023-07-01] MEDS: LOW STRENGTH ASPIRIN 81 MG PO (08:31)
[2023-07-01] MEDS: PLAVIX 75 MG PO (08:31)
[2023-07-01] MEDS: HEPARIN 5000 UNITS SC ×2 (08:31→20:58)
[2023-07-01] MEDS: ROBITUSSIN 600 MG PO (08:31)
[2023-07-01] MEDS: DIFLUCAN 200 MG PO (08:31)
[2023-07-01] MEDS: LIPITOR 20 MG PO (08:31)
[2023-07-01] MEDS: MIRALAX PO ×2 (08:33→20:58)
[2023-07-01] MEDS: ProAmatine PO ×2 (08:34→18:33)
[2023-07-01] MEDS: NOVOLOG FLEXPEN-LOW RESISTANCE 1 UNITS SC ×3 (08:53→19:48)
--- NOTE | 2023-07-01 11:02 | W.PN.CARDCBS ---
Addendum entered and electronically signed by Sari Rondon PA-C 07/01/23 13:11:
Impression:
Candidal UTI/clinical sepsis
Acute hypoxic respiratory failure
Acute HFrEF
Atrial tachycardia
Aortic stenosis, at least mild but difficult to assess severity, may be low-flow state
Hypertension
HLD
IDDM
PAD
s/p R AKA
Dementia
Elevated Troponin
Echo 06/26/2023:�EF 20-25%, akinesis apical inferoseptum, inferoseptal, inferolateral, anterolateral, anterior and inferior pino, mild LVH, normal RV, dilated LA, mild MR, at least mild aortic stenosis, peak gradient 14, could be low-flow, mild
aortic regurgitation, mild to moderate TR, pulmonary artery pressure 35 mmHg
Plan:
-Initial Troponin 3.21 on 06/27/23 and trended down thereafter. No chest pain. Will manage as a nonischemic myocardial injury Troponin elevation
No further atrial tachycardia on higher dose of Lopressor
Difficult to add meds for cardiomyopathy given hypotension requiring midodrine
Volume status difficult to ascertain but likely euvolemic
Remains on oxygen which likely may be multifactorial and may need oxygen at facility
Treatment of Grecia UTI per primary service and ID.
Will sign off, call with questions
Original Note:
Today's Communication / Plan
-
No further atrial tachycardia on higher dose of Lopressor
Will sign off, call with questions
Impression / Plan
-
PCP: Dr. Mcgowan
Cardiology: Unknown
Impression:
Candidal UTI/clinical sepsis
Acute hypoxic respiratory failure
Acute HFrEF
Atrial tachycardia
Aortic stenosis, at least mild but difficult to assess severity, may be low-flow state
Hypertension
HLD
IDDM
PAD
s/p R AKA
Dementia
Echo 06/26/2023: EF 20-25%, akinesis apical inferoseptum, inferoseptal, inferolateral, anterolateral, anterior and inferior pino, mild LVH, normal RV, dilated LA, mild MR, at least mild aortic stenosis, peak gradient 14, could be low-flow, mild
aortic regurgitation, mild to moderate TR, pulmonary artery pressure 35 mmHg
Plan:
No further atrial tachycardia on higher dose of Lopressor
Difficult to add meds for cardiomyopathy given hypotension requiring midodrine
Volume status difficult to ascertain but likely euvolemic
Remains on oxygen which likely may be multifactorial and may need oxygen at facility
Treatment of Grecia UTI per primary service and ID.
Will sign off, call with questions
HPI: Ajit is an 87-year-old male with past medical history of hypertension, hyperlipidemia, insulin-dependent diabetes, PAD status post right AKA, dementia who presented to ER for evaluation of increased confusion and lethargy. halfway
staff where he resides noticed that he had been more lethargic and there was concern for urinary tract infection as he has chronic indwelling catheter. On arrival to the emergency room, he was noted to have sepsis due to complicated UTI with
hypotension. He was started on fluconazole as urine culture grew Grecia. Blood cultures were negative. Outpatient blood pressure medicines were held. He was also started on midodrine and given IV fluids. Overnight 06/25/2013 to 06/26/2023, he
was noted to have increased oxygen requirements, up to 12 L mid flow. Chest x-ray was repeated and showed pulmonary edema. He was given a dose of IV Lasix this AM and has been diuresing well with 400 cc of urine output already noted. He denies
any complaints including shortness of breath, chest pain, dizziness, or lightheadedness. No edema noted on left lower extremity. Cardiology consulted given concern for possible heart failure.
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
Subjective
Date of Service: July 01, 2023
No complaints
Objective
Labs:
07/01/23 04:04
07/01/23 04:04
Labs
Hgb 9.5 g/dL (13.0-18.0) L 07/01/23 04:04
Hct 29.1 % (39.0-52.0) L 07/01/23 04:04
Plt Count 442 10^3/uL (130-400) H 07/01/23 04:04
Sodium 138 mmol/L (135-145) 07/01/23 04:04
Potassium 4.1 mmol/L (3.5-5.1) 07/01/23 04:04
BUN 16 mg/dl (9-20) 07/01/23 04:04
Creatinine 0.6 mg/dL (0.7-1.3) L 07/01/23 04:04
Glucose 179 mg/dl (70-99) H 07/01/23 04:04
Vital Signs and I&O:
Vital Signs
Temp Pulse Resp BP Pulse Ox
98.3 F 81 17 138/65 98
07/01/23 07:30 07/01/23 08:30 07/01/23 08:00 07/01/23 08:34 07/01/23 08:00
Vital Signs
Temp Pulse Resp BP Pulse Ox
98.3 F 81 17 138/65 98
07/01/23 07:30 07/01/23 08:30 07/01/23 08:00 07/01/23 08:34 07/01/23 08:00
Intake & Output
06/29/23 06/30/23 07/01/23 07/02/23
06:59 06:59 06:59 06:59
Intake Total 760 / 760 885 / 885 660 / 660
Output Total 1650 / 1650 750 / 750 880 / 880
Balance -890 / -890 135 / 135 -220 / -220
Physical Exam
Physical Exam
General: Well developed, well nourished in NAD.
Neck: Supple, no JVD, HJR, carotids +2 B/L, no bruits bilaterally.
Heart: Non displaced PMI, RRR, no murmurs, No S3, S4, no rubs.
Lungs: Scattered rhonchi
Extremities: No clubbing, cyanosis or edema bilaterally.
Neuro: Grossly nonfocal, awake, alert and oriented x3.
--- NOTE | 2023-07-01 11:17 | CM ---
Addendum entered by Deepa Madsen RN 07/01/23 15:40:
Ambulance transport arranged for noon tomorrow- MD in agreement.
Attempted to meet with patient who was sleeping.
Received callback from patient's daughter Vani (ph [phone]); Paula is tied up at work so she is responding to CM v/m. She will speak with Wendie at [facility] about setting up appt tomorrow. IMM completed and copy sent to her email at
[email or web address]
Plan [facility] tomorrow with [facility] at noon by ambulance.
Original Note:
Patient from [facility] with Hx Dementia, right AKA with Dx Sepsis due to UTI, Acute hypoxemic respiratory failure due to HF, colitis, RADHA.
CM Consult: Hospice
Spoke with Dr Roberts; he spoke with daughter Paula about hospice - daughter is an RUBBER SPLICER.
Spoke with daughter Paula; she understands the benefits and philosophy of hospice and she has spoken to her father about hospice. She would like [facility] and for her father to return to [facility].
Spoke with Wendie, [facility]; they can accept the referral. They will provide home O2. She will let know if they can have a hospice nurse available today.
Spoke with Samia, [facility]; they are able to accept the patient back whenever [facility] confirms nurse availability. The phone for nurse report [phone], fax [phone].
Plan [facility] with [facility] by ambulance.
--- NOTE | 2023-07-01 12:39 | PN.CDI ---
CDI
- -
CDI:
Physician Documentation Request
Admit Date: 06/23/23 06:54
Dear Cardiology,
Please review the following and provide your response in the progress notes.
Clinical Indicators:
- Patient admit for sepsis
- 07/01 Cardiology 'Acute HFrEF...atrial tachycardia...remains on oxygen'
- 06/30 PN indicates RADHA on admission, resolved with IVF
Laboratory Tests
06/27/23 06/28/23
12:13 09:39
Troponin I 3.210 H* 2.250 H*
Please clarify the following regarding the documented elevated troponins:
Non-LA troponin elevation
Type II LA due to demand ischemia
Other
Use of terms such as suspected, likely, concern for, or probable (associated with a specific diagnosis that is being evaluated, monitored, or treated as if it exists) are acceptable and can be coded in the inpatient setting, when documented at the
time of discharge.
Thank you,
Samanta Leung RN
CDI Specialist
Please use your independent medical judgment in providing your response.
[2023-07-01] MEDS: ProAmatine 5 MG PO (13:31)
[2023-07-01 13:39] LABS: Glucose - Point of Care 182 mg/dl (70-99)
--- NOTE | 2023-07-01 17:32 | W.PN.HOSP.TC ---
Today's Communication/Plan
-
Disposition: 87 years old male with complicated hospital course presenting with candidal UTI and overall complicated given patient frailty and failure to thrive and extensive comorbidity not limited to severe ischemic cardiomyopathy with LVEF of 20%
as well as severe pulmonary hypertension. Mental status remains fluctuant with overall low oral intake. Optimization of cardiovascular regimen limited by persistent hypotension
In discussion with patient's daughter decision made to proceed with hospice consultation with transition back to nursing facility under hospice care.
Assessment / Plan
Assessment / Plan
06/23/23 02:28 Blood/Venous Blood Culture - Final
No Growth - Final Report
06/23/23 02:28 Blood/Venous Blood Culture - Final
No Growth - Final Report
06/23/23 02:28 Urine Urine Culture - Final
Grecia albicans
06/23/23 02:44 Nasal Swab Influenza Types A & B (GLORIA) - Final
Negative for Influenza A & B, NAAT
Negative results must be combined with clinical observations
and patient history.
Nucleic Acid Amplification test (NAAT)performed on the
[employer] platform.
CT A/P:
1. � Severely limited examination without IV and oral contrast. Motion artifact limits the exam. Artifact from the patient's arms limits evaluation for subtle abnormality.
2. � Solid organs unchanged from previous CT 4.5 months ago.
3. � Large amount of stool throughout the colon consistent with constipation. Mild wall thickening of the distal rectosigmoid region, with an area of adjacent stranding and inflammation, differential includes diverticulosis with diverticulitis
versus stercoral colitis. There is fecal impaction in the rectum.
4. � Limited distention of the urinary bladder, there is a Murry catheter in place and the wall is diffusely thickened.
5. � No significant free fluid or free air. No fluid collection to suggest an abscess.
6. � Moderate hiatal hernia.
7. � Increased moderate bibasilar consolidation and small pleural effusions. Does the patient aspirate?
8. 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
9. � Atherosclerotic vascular disease. Not significantly changed from prior CT. Limited exam without IV contrast.
CT brain: There are no acute intracranial abnormalities. 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 There is moderate diffuse cortical atrophy with extensive nonspecific white matter changes.
Echo:
1.� Technically difficult study.� Echo contrast utilized.�
�2.� Normal left ventricular size with severely reduced left ventricular
�systolic function. Akinesis of the mid to apical inferoseptal, inferoseptal,
�inferolateral, anterolateral, anterior and inferior pino.� Mild concentric
�left ventricular hypertrophy.� Estimated left ventricular ejection fraction is
�20 to 25% by visual estimation.� Stage I diastolic dysfunction, suggestive of
�abnormal relaxation.
�3.� Normal right ventricular size and systolic function.
�4.� Mildly dilated left atrium.
�5.� Thickened mitral valve leaflets with mitral annular calcification.� Mild
�mitral regurgitation.
�6.� Calcified trileaflet aortic valve with thickened aortic valve leaflets with
�severely restricted leaflet motion.� Peak and mean transaortic gradients are 14
�and 9 mmHg, consistent with at least mild aortic stenosis.� Low stroke-volume
�index at 21ml/m2.� Mild aortic regurgitation.
�7.� Mild to moderate tricuspid regurgitation with estimated pulmonary artery
�systolic pressure 35 mmHg, assuming a right atrial pressure of 3 mmHg.
�8.� No pericardial effusion.
�9.� No evidence of left ventricular thrombus.
CXR 06/26/23:
1. Moderate pulmonary edema, slightly improved compared to prior chest x-ray.
2. Small bilateral pleural effusions are suspected. Consider PA and lateral views when possible.
Severe sepsis due to probable candidal UTI:
-s/p IVFs on admission
-ID following
-Leukocytosis resolved
-BCxs NG, UCx grecia
-cont Fluconazole through 07/06/23
-as per ID, no need for Uro to evaluate for SPT at this time. Can be addressed after discharge.
-cont Midodrine
Acute hypoxemic respiratory failure due to acute HFrEF:
-Echo above, EF 20-25%
-proBNP 25,000
-trop 3.210, 2.250
-s/p doses of IV Lasix, now on PO lasix
-cont Toprol XL but increase to 50mg daily for tachycardia
-was up to 12L midflow, now weaned down to 3L. Will likely need O2 on d/c.
-cardiology will see again today for tachycardia (discussed with Dr. Fofana)
Rectosigmoid stercoral colitis versus diverticulitis with fecal impaction:
-large BM on 06/24/23
-cont Miralax/senna
-completed a course of abx with Augmentin
RADHA (POA) due to severe sepsis:
-resolved with IVFs
Other problems:
Hypokalemia, resolved
Hypomagnesemia, s/p 2g IV Mg
Hyponatremia
DM2 with Diabetic neuropathy: cont Lantus/SSI/accuchecks
Severe PAD LLE: cont ASA/Plavix/statin/cilostazol
BPH: Continue tamsulosin
Chronic anemia: Holding iron supplement
Essential hypertension: cont metoprolol
DNR
Anticipated Discharge: 24 - 48 hours
Subjective/Interval History
-
Date of Service: July 01, 2023
Objective Data
-
Vital Signs:
Vital Signs
Temp Pulse Resp BP Pulse Ox
98.6 F 78 16 130/64 98
07/01/23 15:15 07/01/23 13:31 07/01/23 12:00 07/01/23 13:31 07/01/23 13:39
I&O
06/30/23 07/01/23 07/02/23
06:59 06:59 06:59
Intake Total 885 / 885 660 / 660
Output Total 750 / 750 880 / 880
Balance 135 / 135 -220 / -220
Physical Exam
-
General: Well Developed and No Apparent Distress
HEENT: Normocephalic, Atraumatic and Moist Mucous Membranes
Respiratory: Clear to Auscultation
Cardiac: Regular Rhythm and S1/S2; Negative Murmur, Rub or Gallop
GI: Soft, Nontender, Nondistended and Normal Bowel Sounds; Negative Organomegaly
Rectal: Deferred by Provider
Genito-urinary: Murry
Musculoskeletal: No Clubbing, No Cyanosis and No Edema
Skin: Negative Rash
Neuro: Nonfocal/Grossly Intact and Other (Lethargic)
[2023-07-01] MEDS: FLORASTOR PO (18:33)
[2023-07-01 19:16] LABS: Glucose - Point of Care 176 mg/dl (70-99)
[2023-07-01] MEDS: ROBITUSSIN PO (20:58)
[2023-07-01] MEDS: SENOKOT PO (20:58)
[2023-07-01] MEDS: LANTUS 0.100000000000000006 UNITS SC (22:33)
[2023-07-01 22:39] LABS: Glucose - Point of Care 218 mg/dl (70-99)
[2023-07-02] VITALS: BP 113/77
[2023-07-02 02:00] VITALS: BP 114/67
[2023-07-02 03:57] VITALS: BMI 19.4
[2023-07-02 04:00] VITALS: BP 136/67
--- NOTE | 2023-07-02 04:13 | PTCARENOTE ---
Pt refusing blood work and wound care. KELLY Troy notified.
[2023-07-02 06:00] VITALS: BP 131/56
[2023-07-02 08:00] VITALS: BP 134/63
[2023-07-02 08:02] LABS: Glucose - Point of Care 137 mg/dl (70-99)
--- NOTE | 2023-07-02 08:49 | PTOTSP ---
BRICK PITCHER Note
Per chart review, goals of care have been discussed. Plan is for discharge to SNF on hospice today. No further dysphagia therapy warranted at this time. Please reconsult if goals of care change.
--- NOTE | 2023-07-02 09:26 | PN.CDI ---
CDI
- -
CDI:
Physician Documentation Request
Admit Date: 06/23/23 06:54
Dear Doctor Armando,
Please review the following and provide your response in the progress notes.
Clinical Indicators:
- Artificial Flowers Dyer notes indicate severe protein calorie malnutrition
- Unintentional weight loss >7.5% in 3 months
- Nutrient intake </=50% estimated energy needs, for >/= 1 month
- Loss of fat over orbital and rib cage
- Loss of muscle over clavicle, scapula, and calf
Based on the information, which of the following most accurately represents the patient's nutritional status?
Severe protein calorie malnutrition
Other
[place] Criteria ([facility] Hospitalist 2017)
2 or more criteria must be present for either
non severe or severe malnutrition
Note that the criteria differs related to the
presence of an acute or chronic illness
Acute Illness Chronic Illness
Energy Intake Non Severe: <75% for >7 days Non Severe: <75% for >1 month
Severe: <50% for >5 days Severe: <75% for >1 month
Weight Loss Non Severe: 1-2% over 1 week Non Severe: 5% over 1 month
5% over 1 month 7.5% over 3 months
7.5% over 3 months 10% over 6 months
1 year N/A 20% over 1 year
Severe: >2% over 1 week Severe: >5% over 1 month
>5% over 1 month >7.5% over 3 months
>7.5% over 3 months >10% over 6 months
1 year N/A >20% over 1 year
Body Fat Non Severe: Mild Decrease Non Severe: Mild Loss
Severe: Moderate Decrease Severe: Severe Loss
Muscle Mass Non Severe: Mild Decrease Non Severe: Mild Loss
Severe: Moderate Decrease Severe: Severe Loss
Fluid Accumulation Non Severe: Mild Accumulation Non Severe: Mild Accumulation
Severe: Moderate to severe Severe: Moderate to severe
accumulation accumulation
Reduced Photovoltaic Fabrication Technician Strength Non Severe: N/A Non Severe: N/A
Severe: Measurably reduced Severe: Measurably reduced
Additional criteria that can be used to Determine if Mild or Moderate Malnutrition (Merck Manual 2018)
Mild Moderate Severe
Albumin gm/dl <3.0 gm/dl <2.5 gm/dl <2.0 gm/dl
Pre Albumin mg/dl <15 gm/dl <10 mg/dl <5.0 mg/dl
BMI <18.5 <17 <16
Use of terms such as suspected, likely, concern for, or probable (associated with a specific diagnosis that is being evaluated, monitored, or treated as if it exists) are acceptable and can be coded in the inpatient setting, when documented at the
time of discharge.
Thank you,
Samanta Leung RN
CDI Specialist
Please use your independent medical judgment in providing your response.
--- NOTE | 2023-07-02 09:27 | CM ---
Patient from [facility] with Hx Dementia, right AKA with Dx Sepsis due to UTI, Acute hypoxemic respiratory failure due to HF, colitis.
Message from Samia, [facility]; they are able to accept the patient back today with [facility] and she is aware of the noon transport time. Samia was notified that the patient is here in Contact Precautions. The phone for nurse
report [phone], fax [phone].
As per prior CM notes, CM spoke with both daughters yesterday who agreed with their father returning to [facility] today with [facility], and they were aware of transport time. IMM done yesterday.
JOE spoke with [place], [facility] yesterday (fax [phone]); hospice nurse will start service today.
Plan [facility] today with [facility] at noon by ambulance.
--- NOTE | 2023-07-02 09:29 | W.DS.TRANS ---
DC Summary - Hospitality Team Member
-
Discharge Instructions:
Discharge Diagnosis/Procedures Acute on chronic respiratory failure.
CHF
Failure to thrive.
Diet 2 Gram Sodium
Instructions:
Stand-Alone Forms:
Changes to Home Medications: Yes
Discharge Medications:
DC Medications w/original date entered in [facility]
acetaminophen 325 mg tablet 325 mg PO Q4HPRN PRN mild pain/fever>100.4 02/05/23
ascorbic acid (vitamin C) 500 mg tablet 500 mg PO DAILY Supplement 02/05/23
aspirin 81 mg chewable tablet 81 mg PO DAILY Blood Clot Prevention/Tx 02/05/23
atorvastatin 20 mg tablet 20 mg PO QPM High Cholesterol 02/05/23
clopidogrel 75 mg tablet 75 mg PO DAILY Blood Clot Prevention/Tx 02/05/23
ferrous gluconate 324 mg (38 mg iron) tablet 324 mg PO DAILY Supplement 02/05/23
folic acid 1 mg tablet 1 mg PO DAILY Supplement 02/05/23
gabapentin 300 mg capsule 300 mg PO BID@0830,1830 Neurological Condition 02/05/23
insulin glargine 100 unit/mL (3 mL) subcutaneous pen (Lantus Solostar U-100 Insulin) 12 unit SC HS Diabetes 02/05/23
melatonin 3 mg tablet 3 mg PO QPM Sleep 02/05/23
metoprolol succinate 25 mg tablet,extended release 24 hr 12.5 mg PO DAILY Blood Pressure 02/05/23
Povidone-Iodine 5% Solution 1 applic topical DAILY Skin Issues 04/04/23
Saccharomyces boulardii 250 mg capsule 250 mg PO BID@0830,1830 probiotic 04/04/23
bisacodyl 10 mg rectal suppository (Dulcolax (bisacodyl)) 10 mg AZ DAILYPRN PRN if lactulose is ineffective 04/04/23
gabapentin 100 mg capsule 100 mg PO BID@0830,1830 Pain 04/04/23
ipratropium 0.5 mg-albuterol 3 mg (2.5 mg base)/3 mL nebulization soln 3 ml inhalation R QIDPRN PRN sob/wheezing 04/04/23
lactulose 10 gram/15 mL oral solution 20 g PO HSPRN PRN constipation 04/04/23
sodium phosphates 19 gram-7 gram/118 mL enema (Fleet Enema) 118 ml [place] DAILYPRN PRN if no bm 8hrs after suppository 04/04/23
docusate sodium 100 mg capsule 100 mg PO BID Constipation #0 caps 04/10/23
midodrine 5 mg tablet 5 mg PO TID@0800,1300,1800 Blood pressure #0 tabs 04/10/23
levothyroxine 50 mcg tablet 50 mcg PO DAILY Thyroid 06/23/23
sennosides 8.6 mg capsule (senna) 17.2 mg PO DAILY Constipation 06/23/23
fluconazole 200 mg tablet 200 mg PO DAILY #4 tabs 07/02/23
oxycodone 15 mg tablet,crush resistant,extended release 12 hr (OxyContin) 15 mg PO Q12 Pain #4 tabs 07/02/23
oxycodone 5 mg tablet 10 mg PO Q6HPRN PRN moderate severe pain #8 tabs 07/02/23
Home Medication Changes
Discharge with hospice transition.
Pending Results: No
[2023-07-02] MEDS: NOVOLOG FLEXPEN-LOW RESISTANCE SC (09:30)
[2023-07-02] MEDS: DIFLUCAN 200 MG PO (09:32)
[2023-07-02] MEDS: ProAmatine 5 MG PO (09:57)
[2023-07-02 10:00] VITALS: BP 133/64
[2023-07-02] MEDS: LOPRESSOR 50 MG PO (10:01)
[2023-07-02] MEDS: LASIX 20 MG PO (10:01)
[2023-07-02] MEDS: PLAVIX 75 MG PO (10:01)
[2023-07-02] MEDS: MAGNESIUM OXIDE 500 MG PO (10:02)
[2023-07-02] MEDS: KCL 20 MEQ PO (10:02)
[2023-07-02] MEDS: LIPITOR 20 MG PO (10:02)
[2023-07-02] MEDS: SENOKOT 17.1999999999999993 MG PO (10:02)
[2023-07-02] MEDS: FLORASTOR 250 MG PO (10:02)
[2023-07-02] MEDS: HEPARIN SC ×2 (10:03→10:14)
[2023-07-02] MEDS: MIRALAX PO (10:11)
[2023-07-02] MEDS: ROBITUSSIN PO (10:11)
[2023-07-02] MEDS: FLOMAX 0.400000000000000022 MG PO (10:11)
[2023-07-02] MEDS: LOW STRENGTH ASPIRIN 81 MG PO (10:11)
--- NOTE | 2023-07-02 10:28 | PTCARENOTE ---
Addendum entered by Sabrina James RN 07/02/23 12:05:
Patient refused wound care. Report given to Kristin at [facility] and updated. Patient remains 12 noon pickup time.
Original Note:
Assumed care of patient at beginning of this shift from previous RN. Patient able to take most of his morning meds, but unable to take miralax and robitussin; also refused heparin injection. 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
See worklist for full assessment and vital signs; see MAR for med administration.
== END 2023-07-02 12:29 | DRG 698 ==
LOC: IMU 06:54
PROVIDERS: Internal Medicine; Internal Medicine Cardiovascular Disease; Registered Nurse; ADMITTING PHYSICIAN Internal Medicine; ATTENDING PHYSICIAN Internal Medicine; CONSULT PHYSICIAN Student in an Organized Health Care Education/Training Program; EMERGENCY PHYSICIAN Emergency Medicine; FAMILY PHYSICIAN Student in an Organized Health Care Education/Training Program; OTHER PHYSICIAN Internal Medicine Cardiovascular Disease
DX: T83.511A Infection and inflammatory reaction due to indwelling urethral catheter, initial encounter (principal); A41.9 Sepsis, unspecified organism; E43 Unspecified severe protein-calorie malnutrition; J96.01 Acute respiratory failure with hypoxia; G92.8 Other toxic encephalopathy; R65.21 Severe sepsis with septic shock; I50.21 Acute systolic (congestive) heart failure; J18.9 Pneumonia, unspecified organism; I13.0 Hypertensive heart and chronic kidney disease with heart failure and stage 1 through stage 4 chronic kidney disease, or unspecified chronic kidney disease; N17.9 Acute kidney failure, unspecified; E87.1 Hypo-osmolality and hyponatremia; E11.52 Type 2 diabetes mellitus with diabetic peripheral angiopathy with gangrene; I96 Gangrene, not elsewhere classified; I5A Non-ischemic myocardial injury (non-traumatic); Z68.1 Body mass index [BMI] 19.9 or less, adult; J98.11 Atelectasis; N39.0 Urinary tract infection, site not specified; E11.40 Type 2 diabetes mellitus with diabetic neuropathy, unspecified; Z87.891 Personal history of nicotine dependence; F03.90 Unspecified dementia, unspecified severity, without behavioral disturbance, psychotic disturbance, mood disturbance, and anxiety; N18.9 Chronic kidney disease, unspecified; N40.0 Benign prostatic hyperplasia without lower urinary tract symptoms; E78.00 Pure hypercholesterolemia, unspecified; Z90.49 Acquired absence of other specified parts of digestive tract; R62.7 Adult failure to thrive; I25.5 Ischemic cardiomyopathy; E87.5 Hyperkalemia; Z79.82 Long term (current) use of aspirin; Z11.52 Encounter for screening for COVID-19; E83.42 Hypomagnesemia; Z66 Do not resuscitate; D64.9 Anemia, unspecified; K59.00 Constipation, unspecified; E87.6 Hypokalemia
CPT/HCPCS: 70450; 71045; 71046; 74176; 74230; 80048; 80053; 81003; 81015; 82962; 83605; 83735; 83880; 84484; 85025; 85027; 87040; 87086; 87502; 87811; 92526; 92610; 92611; 93005; 93306; 94640; 96361; 96365; 96367; 99291; Q9950